=== PATIENT | male | born 1960 | race African-American/Black ===

== ENCOUNTER 2020-02-13 10:55 | Inpatient (IN) | payer MEDICARE, MEDICAID ==
[~2020-02-13] VITALS: Ht 177.8 cm; Wt 103.2 kg
[~2020-02-13 10:55] MED LIST: HYDR-2890 PO
[2020-02-13] MEDS ORDERED: DOCUSATE SODIUM 100 MG (COLACE) CAP PO PRN (12:00)
[2020-02-13] MEDS ORDERED: MELATONIN 3 MG TABLET PO PRN (12:00)
[2020-02-13] MEDS ORDERED: BISACODYL 10 MG SUPP (DULCOLAX) PR PRN (12:00)
[2020-02-13] MEDS ORDERED: ONDANSETRON 4 MG (ZOFRAN) ORAL DISSOLVE TAB PO PRN (12:00)
[2020-02-13] MEDS ORDERED: LOPERAMIDE 2 MG (IMODIUM) TABLET PO PRN (12:00)
[2020-02-13] MEDS ORDERED: diphenhydrAMINE 25 MG TAB (BENADRYL) PO PRN (12:00)
[2020-02-13] MEDS ORDERED: LACTULOSE SYRUP 10GM/15ML (ENULOSE) 30ML UDC PO PRN (12:00)
[2020-02-13] MEDS ORDERED: FLEET ENEMA ADULT 1 EA BTL PR PRN (12:00)
[2020-02-13] MEDS ORDERED: guaiFENesin/CODEINE (ROBITUSSIN AC) 10ML UDC PO PRN (12:00)
[2020-02-13] MEDS ORDERED: CALCIUM CARBONATE 500 MG (TUMS) TAB.CHEW PO PRN (12:00)
[2020-02-13] MEDS ORDERED: ALPRAZolam 0.25 MG (XANAX) TAB PO PRN (12:00)
--- NOTE | 2020-02-13 12:00 | NUR ---
Nicho Duncan admitted to room 232-1, with an admitting diagnosis of Total Right Hip Replacement, on 02/13/20 from [facility] via Private Vehicle, accompanied by Family. Staff met family at entrance and accompanied patient to ARU floor. NICHO DUNCAN JR introduced to surroundings, call light, bed controls, phone, TV, temperature control, lights, meal times, smoking policy, visitor policy, side rail policy, bathrooms and showers. Patient Rights given to patient in the handbook.NICHO DUNCAN JR verbalizes understanding that [facility] is not responsible for the loss or damage to any personal effects or valuables that are kept in the patients possession during their hospitalization. The following Patient Care Plans were discussed with the patient: Discharge Planning, Total hip replacement, and Falls. NICHO DUNCAN JR verbalizes understanding of Interdisciplinary Patient Education. Patient and/or family were informed about the Rapid Response Team and its purpose. Patient received Patient Rights Booklet, which includes Privacy Act Statement and Data Collection Information Summary.
--- OUTSIDE RECORDS SUMMARY | 2020-02-13 13:07 | XMS REPORT | Continuity of Care Document ---
Author Organization Unknown Address Unknown Phone Unavailable Allergies Active Description Code Type Severity Reaction Onset Reported/Identified Relationship to Patient Clinical Status Yes No Known Drug Allergies [id number] Drug Allergy Unknown N/A 07/13/2011 Medications There is no data. 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 07/29/2011 401.9 HYPE RTENSION (SYSTEMIC) 07/29/2011 BEATRIS TENA MD 338.2 1 CHR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 07/29/2011 BEATRIS TENA MD 401.9 HYPERTENSION (SYSTEMIC) 07/29/2011 BEATRIS TENA MD 338.2 1 CHR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 07/29/2011 BEATRIS TENA MD 401.9 HYPERTENSION (SYSTEMIC) 07/29/2011 BEATRIS TENA MD 338.2 1 CHR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 07/29/2011 BEATRIS TENA MD 401.9 HYPERTENSION (SYSTEMIC) 07/29/2011 BEATRIS TENA MD 338.2 1 CHR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 07/29/2011 BEATRIS TENA MD 401.9 HYPERTENSION (SYSTEMIC) 07/29/2011 BEATRIS TENA MD 338.2 1 CHR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 07/29/2011 BEATRIS TENA MD 401.9 HYPERTENSION (SYSTEMIC) 07/29/2011 BEATRIS TENA MD 338.2 1 CHR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 07/29/2011 BEATRIS TENA MD 401.9 HYPERTENSION (SYSTEMIC) 07/29/2011 BEATRIS TENA MD 338.2 1 CHR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 07/29/2011 BEATRIS TENA MD 401.9 HYPERTENSION (SYSTEMIC) 07/29/2011 BEATRIS TENA MD 338.2 1 CHR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 07/29/2011 BEATRIS TENA MD 401.9 HYPERTENSION (SYSTEMIC) 07/29/2011 DARINEL LUGO, BEATRIS 338.2 1 CHR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 07/29/2011 BEATRIS TENA MD 401.9 HYPERTENSION (SYSTEMIC) 07/29/2011 BEATRIS TENA MD 338.2 1 CHR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 07/29/2011 BEATRIS TENA MD 401.9 HYPERTENSION (SYSTEMIC) 07/29/2011 338.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 07/29/2011 401.9 HYPE RTENSION (SYSTEMIC) 07/28/2012 790.6 Live r Function Test, Abnormal 07/28/2012 BEATRIS TENA MD 790.6 Liver Function Test, Abnormal 07/28/2012 BEATRIS TENA MD 790.6 Liver Function Test, Abnormal 07/28/2012 790.6 Live r Function Test, Abnormal 07/28/2012 BEATRIS TENA MD 790.6 Liver Function Test, Abnormal 07/28/2012 BEATRIS TENA MD 790.6 Liver Function Test, Abnormal 07/28/2012 BEATRIS TENA MD 790.6 Liver Function Test, Abnormal 07/28/2012 BEATRIS TENA MD 790.6 Liver Function Test, Abnormal 07/28/2012 BEATRIS TENA MD 790.6 Liver Function Test, Abnormal 07/28/2012 BEATRIS TENA MD 790.6 Liver Function Test, Abnormal 07/28/2012 BEATRIS TENA MD 790.6 Liver Function Test, Abnormal 07/28/2012 BEATRIS TENA MD 790.6 Liver Function Test, Abnormal 07/28/2012 BEATRIS TENA MD 790.6 Liver Function Test, Abnormal 07/28/2012 BEATRIS TENA MD 790.6 Liver Function Test, Abnormal 07/28/2012 790.6 Live r Function Test, Abnormal 02/20/2013 272.4 OTHE R AND UNSPECIFIED HYPERLIPIDEMIA 02/20/2013 BEATRIS TENA MD 272.4 OTHER AND UNSPECIFIED HYPERLIPIDEMIA 02/20/2013 BEATRIS TENA MD 272.4 OTHER AND UNSPECIFIED HYPERLIPIDEMIA 02/20/2013 BEATRIS TENA MD 272.4 OTHER AND UNSPECIFIED HYPERLIPIDEMIA 02/20/2013 BEATRIS TENA MD 272.4 OTHER AND UNSPECIFIED HYPERLIPIDEMIA 02/20/2013 BEATRIS TENA MD 272.4 OTHER AND UNSPECIFIED HYPERLIPIDEMIA 02/20/2013 BEATRIS TENA MD 272.4 OTHER AND UNSPECIFIED HYPERLIPIDEMIA 02/20/2013 BEATRIS TENA MD 272.4 OTHER AND UNSPECIFIED HYPERLIPIDEMIA 02/20/2013 BEATRIS TENA MD 272.4 OTHER AND UNSPECIFIED HYPERLIPIDEMIA 02/20/2013 BEATRIS TENA MD 272.4 OTHER AND UNSPECIFIED HYPERLIPIDEMIA 02/20/2013 BEATRIS TENA MD 272.4 OTHER AND UNSPECIFIED HYPERLIPIDEMIA 05/15/2013 BEATRIS TENA MD 454.1 VARICOSE VEINS OF LOWER EXTREMITIES WITH INFLAMMATION 05/15/2013 BEATRIS TENA MD 454.1 VARICOSE VEINS OF LOWER EXTREMITIES WITH INFLAMMATION 05/15/2013 BEATRIS TENA MD 454.1 VARICOSE VEINS OF LOWER EXTREMITIES WITH INFLAMMATION 05/15/2013 BEATRIS TENA MD 454.1 VARICOSE VEINS OF LOWER EXTREMITIES WITH INFLAMMATION 05/15/2013 BEATRIS TENA MD 454.1 VARICOSE VEINS OF LOWER EXTREMITIES WITH INFLAMMATION 05/15/2013 BEATRIS TENA MD 454.1 VARICOSE VEINS OF LOWER EXTREMITIES WITH INFLAMMATION 05/15/2013 BEATRIS TENA MD 454.1 VARICOSE VEINS OF LOWER EXTREMITIES WITH INFLAMMATION 05/15/2013 BEATRIS TENA MD 454.1 VARICOSE VEINS OF LOWER EXTREMITIES WITH INFLAMMATION 05/15/2013 BEATRIS TENA MD 454.1 VARICOSE VEINS OF LOWER EXTREMITIES WITH INFLAMMATION 05/15/2013 BEATRIS TENA MD 454.1 VARICOSE VEINS OF LOWER EXTREMITIES WITH INFLAMMATION 01/29/2014 BEATRIS TENA MD 608.8 2 HEMATOSPERMIA 01/29/2014 BEATRIS TENA MD 608.8 2 HEMATOSPERMIA 01/29/2014 BEATRIS TENA MD 608.8 2 HEMATOSPERMIA 01/29/2014 BEATRIS TENA MD 608.8 2 HEMATOSPERMIA 01/29/2014 BEATRIS TENA MD 608.8 2 HEMATOSPERMIA 01/29/2014 BEATRIS TENA MD8.8 2 HEMATOSPERMIA 01/29/2014 BEATRIS TENA MD 608.8 2 HEMATOSPERMIA 11/15/2014 BEATRIS TENA MD 790.4 NONSPECIFIC ELEVATION OF LEVELS OF TRANSAMINASE OR LACTIC ACID DEHYDROGENASE (LDH) 11/15/2014 BEATRIS TENA MD 790.4 NONSPECIFIC ELEVATION OF LEVELS OF TRANSAMINASE OR LACTIC ACID DEHYDROGENASE (LDH) Procedures Code Description [place] [address] CMP 01/31/2013 09926 LIPI D PANEL 01/31/20132176390 GF R CALC (RESULT ONLY) 01/31/2013 98239 ROUT INE VENIPUNCTURE 08/13/2013 46503 CMP 08/13/20135439966 GF R CALC (RESULT ONLY) 08/13/2013 72803 XRAY SINUSES ORTIZ VIEW 08/30/2014 55274 MRI SPINE (LUMBAR) W/O CONTRAST 08/30/2014 76194 ROUT INE VENIPUNCTURE 11/14/2014 87203 CMP 11/14/2014 85734 LIPI D PANEL 11/14/20147341875 GF R CALC (RESULT ONLY) 11/14/2014 89482 AMERITOX 01/16/2015 Results There is no data. Encounters ACCT No. Visit Date/Time Discharge Status Pt. Type Provider Facility Loc./Unit Complaint [id number] 01/16/2015 12:52:00 01/16/2015 23:59: 59 EDMUND Outpatient BEATRIS TENA MD [id number] 11/14/2014 10:32:00 11/14/2014 23:59: 59 EDMUND Outpatient BEATRIS TENA MD [id number] 08/30/2014 10:02:00 08/30/2014 23:59: 59 EDMUND Outpatient BEATRIS TENA MD [id number] 08/30/2014 10:02:00 08/30/2014 23:59: 59 EDMUND Outpatient BEATRIS TENA MD [id number] 06/10/2014 16:31:00 06/10/2014 23:59: 59 EDMUND Outpatient BEATRIS TENA MD [id number] 03/22/2014 15:40:00 03/22/2014 23:59: 59 BEATRIS Victor MD [id number] 01/29/2014 16:01:00 01/29/2014 23:59: 59 EDMUND Outpatient BEATRIS TENA MD [id number] 10/30/2013 10:16:00 10/30/2013 23:59: 59 CLS Outpatient BEATRIS TENA MD [id number] 08/13/2013 14:53:00 08/13/2013 23:59: 59 CLS Outpatient BEATRIS TENA MD [id number] 05/15/2013 10:02:00 05/15/2013 23:59: 59 CLS Outpatient BEATRIS TENA MD [id number] 01/30/2013 16:13:00 01/30/2013 23:59: 59 CLS Outpatient BEATRIS TENA MD [id number] 10/23/2012 15:35:00 10/23/2012 23:59: 59 CLS Outpatient BEATRIS TENA MD [id number] 07/25/2012 13:18:00 07/25/2012 23:59: 59 CLS Outpatient [id number] 07/25/2012 13:18:00 07/25/2012 23:59:5 9 CLS Outpatient [id number] 02/20/2013 10:00:00 Document Registration [id number] 09/30/2014 09:00:00 014 23:59:59 CLS Outpatient BEATRIS TENA MD [facility]
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
[2020-02-13] MEDS ORDERED: ASPI-983 PO (14:12)
[2020-02-13] MEDS ORDERED: CARV12.53 PO (14:12)
[2020-02-13] MEDS ORDERED: MELO7.5T46 PO (14:12)
[2020-02-13] MEDS ORDERED: TRAM50TA3 PO (14:12)
[2020-02-13] MEDS ORDERED: GBPN600T PO (14:12)
[2020-02-13] MEDS ORDERED: ATOR40TA70 PO (14:12)
[2020-02-13] MEDS ORDERED: DIAZ10TA3 PO (14:12)
[2020-02-13] MEDS ORDERED: OXYC-471 PO (14:12)
[2020-02-13] MEDS ORDERED: PANT40TA2 PO (14:12)
[2020-02-13] MEDS ORDERED: HYDR12.56 PO (14:12)
[2020-02-13] MEDS ORDERED: DULO30CA49 PO (14:12)
[2020-02-13] MEDS ORDERED: FENO145T26 PO (14:12)
[2020-02-13 14:13] VITALS: BP 92/60
--- NOTE | 2020-02-13 14:13 | Occupational Ther Daily Note ---
OT Current Status-Daily Note Subjective Pt seated in recliner, chair alarm on at start of session, agreeable to OT tx. ADL-Treatment Therapy Code Descriptions/Definitions Functional [place] Measure: 0=Not Assessed/NA 4=Minimal Assistance 1=Total Assistance 5=Supervision or Setup 2=Maximal Assistance 6=Modified [place] 3=Moderate Assistance 7=Complete IndependenceSCALE: Activities may be completed with or without assistive devices. 9-Xwbkvqwkln-uxqrjaj completes the activity by him/herself with no assistance from a helper. 5-Set-up or Clean-up Assistance-helper sets up or cleans up; patient completes activity. [place] assists only prior to or following the activity. 4-Supervision or Touching Assistance-helper provides verbal cues and/or touching/steadying and/or contact guard assistance as patient completes activity. Assistance may be provided throughout the activity or intermittently. 3-Partial/Moderate Assistance-helper does LESS THAN HALF the effort. [place] lifts, holds or supports trunk or limbs, but provides less than half the effort. 2-Substantial/Maximal Assistance-helper does MORE THAN HALF the effort. [place] lifts or holds trunk or limbs and provides more than half the effort. 4-Ypdrzqgqv-izxtbx does ALL the effort. Patient does none of the effort to complete the activity. Or, the assistance of 2 or more helpers is required for the patient to complete the activity. If activity was not attempted, code reason: 7-Patient Refused. 9-Not Applicable-not attempted and the patient did not perform the activity before the current illness, exacerbation or injury. 10-Not Attempted due to Environmental Limitations-(lack of equipment, weather restraints, etc.). 88-Not Attempted due to Medical Conditions or Safety Concerns. Shower/Bathe Self (QC): 3 (Assist BLEs lower legs and feet. Pt able to wash all other areas, CGA during stand at [facility].) Upper Body Dressing (QC): 5 (set up) Lower Body Dressing (QC): 2 (Assist threading BLEs into pants/underwear. Pt able to manage up with CGA in stand at FWW) On/Off Footwear: 2 (Pt able to get shoes off, required assist doffing socks and TedHose. Pt dependent with donning TedHose and socks.) Toileting Hygiene (QC): 3 (Min A standing balance at FWW. Pt able to manage clothing down/up and stand to urinate at toilet.) Other Treatment Pt seated in recliner, transferred to restroom where he completed toileting, shower, and dressing. Pt returned to the recliner, chair alarm on, call light in reach and all needs met. Pt impulsive throughout session, standing without warning, he was educated to not stand without staff present but had poor carryover during tx. Education OT Patient Education: Correct positioning, Energy conservation, Modified ADL techniques, Progress toward Goal/Update tx plan, Purpose of tx/functional activities, Safety issues, Transfer techniques Teaching Recipient: Patient Teaching Methods: Discussion Response to Teaching: Reinforcement Needed OT Senior Living Goals Batch Mixer Goals Time Frame: Mar 05, 2020 Eating (QC): 6 Oral Hygiene (QC): 6 Toileting Hygiene (QC): 6 Shower/Bathe Self (QC): 6 Upper Body Dressing (QC): 6 Lower Body Dressing (QC): 6 On/Off Footwear (QC): 6 Additional Goals: 1-Demonstrate ADL Tasks, 2-Verbalize Understanding, 3- ImproveStrength/Gareth 1=Demonstrate adherence to instructed precautions during ADL tasks. 2=Patient will verbalize/demonstrate understanding of assistive devices/modifications for ADL. 3=Patient will improve strength/tolerance for activity to enable patient to perform ADL's. OT Education/Plan Problem List/Assessment Assessment: Decreased Activ Tolerance, Decreased UE Strength, Impaired Funct Balance, Impaired I ADL's, Impaired Self-Care Skills Discharge Recommendations Plan/Recommendations: Continue POC Treatment Plan/Plan of Care Treatment,Training & Education: Yes Patient would benefit from OT for education, treatment and training to promote independence in ADL's, mobility, safety and/or upper extremity function for ADL's. Plan of Care: ADL Retraining, Functional Mobility, Group Exercise/Act as Ind, UE Funct Exercise/Act Treatment Duration: Mar 05, 2020 Frequency: At least 5 of 7 days/Wk (IRF) Estimated Hrs Per Day: 1.5 hours per day Agreement: Yes Rehab Potential: Good Time/GCodes Start Time: 13:10 Stop Time: 14:00 Total Time Billed (hr/min): 50 Billed Treatment Time 1, ADL 3 DEREJE GODFREY OT Feb 13, 2020 14:13
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
--- NOTE | 2020-02-13 14:29 | NUR ---
ENTERED THE MED REC USING THE DISCHARGE MEDICATION LIST FROM [facility] Addendum: 02/14/20 at 1641 by KIMBERLEY NUNEZ CPhT I SPOKE WITH THE PT AND WENT THRU THE EXT MED HISTORY TO COMPLETE THE MED REC THE FOLLOWING MEDICATIONS HAVE BEEN REMOVED FROM THE MED REC DUE TO THE PT NOT TAKING THEM BEFORE HIS SURGERY: OXYCODONE/APAP 5-325MG MELOXICAM 7.5MG PROTONIX 40MG TRAMADOL 50MG THE FOLLOWING MEDICATIONS WERE ADDED TO THE MED REC SINCE HE WAS TAKING THEM BEFORE HIS SURGERY: OXYCODONE 10MG LISINOPRIL 20MG OTC MEDS: ASPIRIN
[2020-02-13] MEDS ORDERED: DIAZEPAM 5 MG (VALIUM) TABLET PO PRN (14:45)
--- NOTE | 2020-02-13 14:59 | Physical Therapy Evaluation ---
PT Evaluation-General Medical Diagnosis Admission Date Feb 13, 2020 at 12:00 Medical Diagnosis: Right NITA Onset Date: Feb 12, 2020 Therapy Diagnosis Therapy Diagnosis: impaired mobility, strength, endurance, ROM Precautions Precautions/Isolations: Standard Precautions Referral Physician: Yareli Reason for Referral: Evaluation/Treatment Medical History Pertinent Medical History: CVA, HTN, OA Reviewed History: Yes Social History Home: Apartment Current Living Status: Alone Entry Into Home: Level Entry Prior Prior Level of Function SCALE: Activities may be completed with or without assistive devices. 8-Nglfgbdmrb-cnqmvfu completes the activity by him/herself with no assistance from a helper. 5-Set-up or Clean-up Assistance-helper sets up or cleans up; patient completes activity. [place] assists only prior to or following the activity. 4-Supervision or Touching Assistance-helper provides verbal cues and/or touching/steadying and/or contact guard assistance as patient completes activity. Assistance may be provided throughout the activity or intermittently. 3-Partial/Moderate Assistance-helper does LESS THAN HALF the effort. [place] lifts, holds or supports trunk or limbs, but provides less than half the effort. 2-Substantial/Maximal Assistance-helper does MORE THAN HALF the effort. [place] lifts or holds trunk or limbs and provides more than half the effort. 5-Vbbzanbor-sedpmb does ALL the effort. Patient does none of the effort to complete the activity. Or, the assistance of 2 or more helpers is required for the patient to complete the activity. If activity was not attempted, code reason: 7-Patient Refused. 9-Not Applicable-not attempted and the patient did not perform the activity before the current illness, exacerbation or injury. 10-Not Attempted due to Environmental Limitations-(lack of equipment, weather restraints, etc.). 88-Not Attempted due to Medical Conditions or Safety Concerns. Bed Mobility: 6 Transfers (B,C,W/C): 6 Gait: 6 Indoor Mobility (Ambulation): Independent Patient states he was using both a walker and cane PT Evaluation-Current Subjective Patient in recliner pre tx, agrees to PT, has 8/10 pain in right hip. Pt/Family Goals to be independent at home Objective Patient Orientation: Person, Place, Situation ROM/Strength ROM Lower Extremities NT Strength Lower Extremities NT Sensory Vision: Functional Hearing: Functional Hand Dominance: Right Sensation Right Lower Extremit: Impaired Sensation Left Lower Extremity: Intact Sensation Lower Extremities Patient has decreased sensation in the right leg. Transfers Roll Left to Right (QC): 4 Sit to Lying (QC): 3 Lying to Sitting/Side of Bed(Q: 3 Sit to Stand (QC): 4 Chair/Qne-yh-Dlult Xfer(QC): 4 Toilet Transfer (QC): 4 Car Transfer (QC): 3 Patient performs bed mobility with SBA, supine <-> sit with min assist, sit <-> stand CGA, transfers CGA, car transfer min assist. Patient needs cues for hand placement and safety, will often sit without reaching back for armrests. Gait Does the Patient Walk?: Yes Mode of Locomotion: Walk Anticipated Mode of Locomotion: Walk Walk 10 feet (QC): 4 Walk 50 ft with 2 Turns(QC): 4 Walk 150 ft (QC): 4 Walking 10ft/uneven surface-QC: 4 Distance: 200', 150' Gait Assistive Device: FWW Comments/Gait Description Patient can ambulate 200' with a rolling walker with CGA (including 50' with at least 2 turns of 90 degrees and 10' over an uneven surface). Patient ambulates slowly but steady, good step through and heel strike. Wheelchair Training Does the Pt Use a Wheelchair?: No Wheel 50 ft with 2 turns (QC): 9 Wheel 150 ft (QC): 9 Stairs #of Steps: 4 1 Step (curb) (QC): 4 4 Steps (QC): 4 12 Steps (QC): 88 Patient can go up and down 4 steps using 2 handrails with CGA, cues for foot placement. Patient has a difficult time getting getting right leg off the step when descending. Balance Sitting Static: Normal Sitting Dynamic: Normal Standing Static: Good Standing Dynamic: Good Picking up an Object (QC): 88 Treatment NuStep level 3 for 15 min Assessment/Needs Patient has impaired mobility, strength, endurance, ROM. Patient in recliner post tx with nurse call, phone, tray, chair alarm on. Patient has impaired safety awareness and needs cues for hand placement when sitting and standing. Rehab Potential: Fair PT Short Term Goals Short Term Goals Time Frame: Feb 20, 2020 Roll Left & Right: 6 Sit to lyin Lying to sitting on side of be: 4 Sit to stand: 4 Chair/tdr-sz-jhtmp transfer: 4 Walk 10 feet: 4 Walk 50 feet with two turns: 4 Walk 150 feet: 4 PT Jacquard Lace Weaver Goals Senior Care Goals PT Senior Care Goals Time Frame: Mar 05, 2020 Roll Left & Right (QC): 6 Sit to Lying (QC): 6 Lying-Sitting on Side/Bed(QC): 6 Sit to Stand (QC): 6 Chair/Ixx-aj-Vlzpa Xfer(QC): 6 Toilet Transfer (QC): 6 Car Transfer (QC): 6 Does the Patient Walk: Yes Walk 10 feet (QC): 6 Walk 50ft with 2 Turns (QC): 6 Walk 150 ft (QC): 6 Walking 10ft on Uneven Surface: 6 1 Step (curb) (QC): 4 4 Steps (QC): 4 12 Steps (QC): 4 Picking up an Object (QC): 88 Does the Pt use WC or Scooter?: No Wheel 50 feet with 2 turns (QC: 9 Type: N/A Wheel 150 feet: 9 Type: N/A PT Plan Problem List Problem List: Activity Tolerance, Functional Strength, Safety, Balance, Gait, Transfer, Bed Mobility, ROM Treatment/Plan Treatment Plan: Continue Plan of Care Treatment Plan: Bed Mobility, Education, Functional Activity Gareth, Functional Strength, Group Therapy, Gait, Safety, Therapeutic Exercise, Transfers Treatment Duration: Mar 05, 2020 Frequency: At least 5 of 7 days/Wk (IRF) Estimated Hrs Per Day: 1.5 hours per day Patient and/or Family Agrees t: Yes Safety Risks/Education Patient Education: Gait Training, Transfer Techniques, Steps, Correct Positioning, Safety Issues Teaching Recipient: Patient Teaching Methods: Demonstration, Discussion Response to Teaching: Reinforcement Needed Discharge Recommendations Plan Patient will perform bed mobility and transfer training, balance and endurance training, functional strengthening, stair training, gait training, and education, to improve functional mobility and independence at home. Therapy Discharge Recommendati: Home & Family Time/GCodes Time In: 1400 Time Out: 1515 Total Billed Treatment Time: 75 Total Billed Treatment 1 visit EVM 30' EX 15' GT 15' FA 15' RHONDA DING PT Feb 13, 2020 14:59
[2020-02-13 15:15] VITALS: BP 92/60
[2020-02-13 15:17] VITALS: BP 92/60
--- NOTE | 2020-02-13 16:07 | ST Cognitive Linguistic Eval ---
Speech Evaluation-General Medical Diagnosis Right NITA Onset Date: Feb 12, 2020 Therapy Diagnosis Therapy Diagnosis: Cognitive-communication Referral Referring Physician: Dr. Downs Medical History Pertinent Medical History: CVA, HTN, OA Reviewed History: Yes Social History Current Living Status: Alone Speech PLF-Current Status Prior Level of Function Patient lived alone with family support where he was independent for much of his daily needs. Subjective Patient was pleasant and cooperative with the cognitive assessment. Language Eval: Auditory Comprehends Simple Yes/No Ques: Functional Indent/Objects Multiple Hill: Functional Ident/Pics in Multiple Hill: Functional Follows 1-Step Commands: Functional Follows Complex Directions: Mild Follows General Conversations: Moderate Language Eval: Verbal Language Completes Spontaneous Greeting: Functional Produces Auto, Serial Info: Functional Imitates Simple Words/Phrases: Functional Word Finding: Severe Requests Basic Needs: Functional States Basic Personal Info: Mild Expresses Complex Ideas: Moderate Objective Cognitive Domain Attention: Moderate Memory: Mild Problem Solving: Mild Executive Functions: Mild Visuospatial Skills: Mild Composite Severity Rating: Moderate Clock Drawing Severity Rating: Mild Objective Formal/Standardized Tests [facility] Status ([facility]) Results 24/30, Mild Neurocognitive Disorder range of function. Oral Motor/Speech Production Patient is intelligible, however he has a moderate dysfluent pattern of speech Impression Patient is a pleasant 59 year old male who has a complex history. He was admitted to the ARU s/p right hip replacement. Patient was given the SLUMS with a score of 24/30 obtained. this score falls in the MNCD range of function. Patient qualifies for skilled services for cognitive therapy. Speech Patient Assess Expression of Ideas/Wants: Exhibits (3) Understanding Verbal Content: Usually Understands (3) Brief Interview-Mental Status: Yes Repetition of Three Words: Three (3) Temporal Orientation: Year: Correct (3) Temporal Orientation: Month: Accurate within 5 days(2) Temporal Orientation: Day: Correct (1) Recall : Wear to say "Sock": Yes,after cueing (1) Recall : Color: No, could not recall (0) Recall : Bed: Yes,after cueing (1) Memory/Recall Ability: Current season, That he or she is in a hsp/hsp unit Speech Short Term Goals Short Term Goals Short Term Goals 1) Patient will complete memory tasks related to his daily needs with 90% or greater given minimal cuing. 2) Patient will complete safety awareness tasks related to his daily needs with 90% or greater given minimal cuing. 3) Patient will complete problem solving tasks related to his daily needs with 90% or greater given minimal cuing. Speech Care Home Goals Care Home Goals Patient will improve cognitive-communication necessary for safety and daily living tasks with minimal assist. Speech-Plan Patient/Family Goals Patient/Family Goals: Patient plans on returning home with family support upon rehab discharge. Treatment Plan Speech Therapy Treatment Plan: Continue Plan of Care Treatment Duration: Feb 29, 2020 Frequency: 5 times per week Estimated Hrs Per Day: .5 hour per day Rehab Potential: Fair Barriers to Learning: Patient's medical history and SLUMS score Pt/Family Agrees to Plan: Yes Safety Risks/Education Teaching Recipient: Patient Teaching Methods: Discussion Response to Teaching: Verbalize Understanding Education Topics Provided: Safety within his room and communication of wants/needs Time Speech Therapy Time In: 15:30 Speech Therapy Time Out: 16:00 Total Billed Time: 30 Billed Treatment Time 1, YANETNDMARGARET Peters Feb 13, 2020 16:07
[2020-02-13 18:00] VITALS: BP 119/74
[2020-02-13] MEDS: GABAPENTIN 600 MG (NEURONTIN) TAB PO SCH (20:49)
[2020-02-13] MEDS: CARVEDILOL 12.5 MG (COREG) TABLET PO SCH (20:50)
[2020-02-13] MEDS: FENOFIBRATE 134 MG (LOFIBRA) CAPSULE PO SCH (20:50)
[2020-02-13] MEDS: MELOXICAM 7.5 MG (MOBIC) TABLET PO SCH (20:50)
[2020-02-13] MEDS: oxyCODONE/APAP 5/325MG (PERCOCET 5) TABLET PO PRN (20:54)
[2020-02-13] MEDS: DOCUSATE SODIUM 100 MG (COLACE) CAP PO SCH (22:12)
[2020-02-13] MEDS: polyethylene glycoL POWDER 17 GM (MIRALAX) PACK PO SCH (22:12)
[2020-02-13] MEDS: SENNA W/DOCUSATE (SENOKOT S) TABLET PO SCH (22:13)
--- NOTE | 2020-02-14 02:13 | NUR ---
RN checked on patient and found patient in bed with all bedding on the floor. Patient stated he was okay but RN explained that we needed to get new bedding on his bed. Bedding replaced and gown placed on patient. RN found a pill bottle sitting on the computer next to patient's bed. RN grabbed the bottle to look at it and patient stated he needed it back. Bottle contained oxycodone/apap 5-325 mg. Pills were prescribed by Dr. Jon and filled by [facility] on 02/13/20. Bottle label states 56 pills. RN will count with other RN, fill out a count sheet. and lock in the med insulation cupola operator patient's room. Addendum: 02/14/20 at 0313 by HAYDEE THOMAS RN Bottle said there should be 56 pills but count only found 45. Count sheet filled out and signed and medication locked in med insulation cupola operator room. Vitals stable- 150/99, pulse 68, respirations 21, and O2 100%. Dr. Downs notified and no new orders received.
[2020-02-14 05:42] LABS: BASOPHILS % (AUTO) 0 % (0-10); EOSINOPHILS % (AUTO) 0 % (0-10); HEMATOCRIT 31 % (40-54); HEMOGLOBIN 10.6 G/DL (13.3-17.7); LYMPHOCYTES # (AUTO) 1.4 X 10^3 (1.0-4.0); LYMPHOCYTES % (AUTO) 12 % (12-44); MEAN CORPUSCULAR HEMOGLOBIN 31 PG (25-34); MEAN CORPUSCULAR HGB CONC 34 G/DL (32-36); MEAN CORPUSCULAR VOLUME 89 FL (80-99); MEAN PLATELET VOLUME 9.6 FL (7.4-10.4); MONOCYTES # (AUTO) 1.3 X 10^3 (0.0-1.0); MONOCYTES % (AUTO) 11 % (0-12); NEUTROPHILS # (AUTO) 9.3 X 10^3 (1.8-7.8); NEUTROPHILS % (AUTO) 77 % (42-75); PLATELET COUNT 200 10^3/uL (130-400); RED CELL DISTRIBUTION WIDTH 14.2 % (10.0-14.5)
[2020-02-14 05:53] LABS: ALBUMIN 3.7 GM/DL (3.2-4.5); CHLORIDE 101 MMOL/L (98-107); POTASSIUM 4.4 MMOL/L (3.6-5.0); SODIUM 136 MMOL/L (135-145)
[2020-02-14 05:55] VITALS: BP 150/99
[2020-02-14 05:55] LABS: GLUCOSE 117 MG/DL (70-105)
[2020-02-14 05:56] LABS: TOTAL PROTEIN 6.6 GM/DL (6.4-8.2)
[2020-02-14 05:57] LABS: BILIRUBIN,TOTAL 0.5 MG/DL (0.1-1.0); CARBON DIOXIDE 26 MMOL/L (21-32)
[2020-02-14 05:59] LABS: ALKALINE PHOSPHATASE 138 U/L (40-136); CREATININE SERUM 1.07 MG/DL (0.60-1.30); GFR ESTIMATED > 60
[2020-02-14 06:00] LABS: BUN/CREATININE RATIO 25
[2020-02-14 06:02] LABS: ALANINE AMINOTRANSFERASE 243 U/L (0-55)
[2020-02-14] MEDS: PANTOPRAZOLE 40 MG (PROTONIX) TAB PO SCH (08:10)
[2020-02-14] MEDS: ASPIRIN E.C. 81 MG (ECOTRIN) TAB PO SCH (08:10)
[2020-02-14] MEDS: CARVEDILOL 12.5 MG (COREG) TABLET PO SCH ×2 (08:10→22:24)
[2020-02-14] MEDS: MELOXICAM 7.5 MG (MOBIC) TABLET PO SCH ×2 (08:10→22:16)
[2020-02-14] MEDS: GABAPENTIN 600 MG (NEURONTIN) TAB PO SCH ×3 (08:10→22:16)
[2020-02-14] MEDS: polyethylene glycoL POWDER 17 GM (MIRALAX) PACK PO SCH ×2 (08:11→22:18)
[2020-02-14] MEDS: SENNA W/DOCUSATE (SENOKOT S) TABLET PO SCH ×2 (08:11→22:18)
[2020-02-14] MEDS: DOCUSATE SODIUM 100 MG (COLACE) CAP PO SCH ×2 (08:12→22:18)
[2020-02-14] MEDS: DULoxetine 30 MG (CYMBALTA) CAP PO SCH (08:13)
--- NOTE | 2020-02-14 09:40 | Speech Therapy Daily Note ---
Speech Daily Progress Note Subjective Date Seen by Provider: Feb 14, 2020 Time Seen by Provider: 00:30 Patient was sleeping in his bed when I entered his room, he did awaken easily and participated with therapy. Objective Patient completed a series of problem solving tasks via q/a with 70% accuracy given mod to max redirections. Assessment Assessment Current Status: Fair Progress Treatment Plan Continue Plan of Care Speech Short Term Goals Short Term Goals Short Term Goals 1) Patient will complete memory tasks related to his daily needs with 90% or greater given minimal cuing. 2) Patient will complete safety awareness tasks related to his daily needs with 90% or greater given minimal cuing. 3) Patient will complete problem solving tasks related to his daily needs with 90% or greater given minimal cuing. Speech Power Plant Operations Manager Goals Power Plant Operations Manager Goals Patient will improve cognitive-communication necessary for safety and daily living tasks with minimal assist. Speech-Plan Patient/Family Goals Patient/Family Goals: Patient plans on returning home with family support upon hospital discharge. Treatment Plan Speech Therapy Treatment Plan: Continue Plan of Care Treatment Duration: Feb 29, 2020 Frequency: 5 times per week Estimated Hrs Per Day: .5 hour per day Rehab Potential: Fair Barriers to Learning: Patient's medical history, cognitive deficits, impulsive behaviors Pt/Family Agrees to Plan: Yes Safety Risks/Education Teaching Recipient: Patient Teaching Methods: Demonstration, Discussion Response to Teaching: Verbalize Understanding, Return Demonstration Education Topics Provided: Continued safety and communication of wants/needs, using the call light as needed Time Speech Therapy Time In: 09:00 Speech Therapy Time Out: 09:30 Total Billed Time: 30 Billed Treatment Time 1, MARGARET Hinds Feb 14, 2020 09:40
--- NOTE | 2020-02-14 10:37 | Physical Therapy Daily Note ---
PT Daily Note-Current Subjective Pt in bed upon arrival. Pt agrees to therapy tx; request urinal use and to get dressed. Pain Numeric Pain Scale: 3 Location: Right Location Body Site: Hip Pain Description: Ache Comment: Spoke w/ RN regarding pain; pt was given pain medication earlier in shift. Mental Status Patient Orientation: Person, Place, Time, Situation, Mumbles (At times ) Attachments: Other-See Comments (ANNMARIE Hicks) Transfers SCALE: Activities may be completed with or without assistive devices. 2-Zilyxslozu-kqfbezw completes the activity by him/herself with no assistance from a helper. 5-Set-up or Clean-up Assistance-helper sets up or cleans up; patient completes activity. [place] assists only prior to or following the activity. 4-Supervision or Touching Assistance-helper provides verbal cues and/or touching/steadying and/or contact guard assistance as patient completes activity. Assistance may be provided throughout the activity or intermittently. 3-Partial/Moderate Assistance-helper does LESS THAN HALF the effort. [place] lifts, holds or supports trunk or limbs, but provides less than half the effort. 2-Substantial/Maximal Assistance-helper does MORE THAN HALF the effort. [place] lifts or holds trunk or limbs and provides more than half the effort. 4-Ghoyuxydd-tvsrud does ALL the effort. Patient does none of the effort to complete the activity. Or, the assistance of 2 or more helpers is required for the patient to complete the activity. If activity was not attempted, code reason: 7-Patient Refused. 9-Not Applicable-not attempted and the patient did not perform the activity before the current illness, exacerbation or injury. 10-Not Attempted due to Environmental Limitations-(lack of equipment, weather restraints, etc.). 88-Not Attempted due to Medical Conditions or Safety Concerns. Sit to Lying (QC): 3 Lying to Sitting/Side of Bed(Q: 3 Sit to Stand (QC): 4 Chair/Oas-ej-Hywix Xfer(QC): 4 Gait Training Does the Patient Walk?: Yes Distance: 150' Gait Persons Needed: 1 Gait Assistive Device: FWW Pt ambulates w/ CGA Exercises Standing: Weight shifts NuStep Minutes: 15 NuStep Workload: 3 Treatments Pt requires assistance w/ LE dressing. Pt wt shifts while using urinal at start of tx and while washing hands; wt shifts towards end of tx using toilet in bathroom and while washing hands. No LOB at any time. Pt in bed w/ bed alarm on, call light and bedside table w/ in reach and all needs met at end of tx. Assessment Current Status: Good Progress Pt actively participates in therapy tx. Pt requires skilled VC's for hand placement during transfers. PT Short Term Goals Short Term Goals Time Frame: Feb 20, 2020 Roll Left & Right: 6 Sit to lyin Lying to sitting on side of be: 4 Sit to stand: 4 Chair/cfc-sx-bsxne transfer: 4 Walk 10 feet: 4 Walk 50 feet with two turns: 4 Walk 150 feet: 4 PT Detention Goals Search Engine Optimization Analyst Goals PT Detention Goals Time Frame: Mar 05, 2020 Roll Left & Right (QC): 6 Sit to Lying (QC): 6 Lying-Sitting on Side/Bed(QC): 6 Sit to Stand (QC): 6 Chair/Xyo-gn-Laygm Xfer(QC): 6 Toilet Transfer (QC): 6 Car Transfer (QC): 6 Does the Patient Walk: Yes Walk 10 feet (QC): 6 Walk 50ft with 2 Turns (QC): 6 Walk 150 ft (QC): 6 Walking 10ft on Uneven Surface: 6 1 Step (curb) (QC): 4 4 Steps (QC): 4 12 Steps (QC): 4 Picking up an Object (QC): 88 Does the Pt use WC or Scooter?: No Wheel 50 feet with 2 turns (QC: 9 Type: N/A Wheel 150 feet: 9 Type: N/A PT Plan Problem List Problem List: Activity Tolerance, Functional Strength, Safety, Balance, Gait, Transfer, Bed Mobility Treatment/Plan Treatment Plan: Continue Plan of Care Treatment Plan: Bed Mobility, Education, Functional Activity Gareth, Functional Strength, Group Therapy, Gait, Safety, Therapeutic Exercise, Transfers Treatment Duration: Mar 05, 2020 Frequency: At least 5 of 7 days/Wk (IRF) Estimated Hrs Per Day: 1.5 hours per day Patient and/or Family Agrees t: Yes Safety Risks/Education Patient Education: Gait Training, Transfer Techniques, Correct Positioning, Safety Issues Teaching Recipient: Patient Teaching Methods: Discussion Response to Teaching: Verbalize Understanding, Reinforcement Needed Time/GCodes Time In: 0930 Time Out: 1030 Total Billed Treatment Time: 60 Total Billed Treatment 1, GT x1 (15m), EX x1 (15m), FA x2 (30m) INDIA LEZAMA MINER PICK Feb 14, 2020 10:37
--- NOTE | 2020-02-14 11:11 | NUR ---
DC FLUID RESTRICTION PER DR. LUJAN.
[2020-02-14] MEDS: oxyCODONE/APAP 5/325MG (PERCOCET 5) TABLET PO PRN ×2 (11:27→22:24)
--- NOTE | 2020-02-14 12:02 | Occupational Ther Daily Note ---
OT Current Status-Daily Note Subjective Pt sleeping in bed, woke to name. Pt stated that he had just laid down from PT. Pt educated on 3 hrs of therapy and the difference between OT/PT. Pt c/o pain, stating that he did have pain pills from PCP every 4 hours and did not want that to change. Nrsg notified and brought pain meds. Mental Status/Objective Patient Orientation: Person, Place, Time, Situation Attachments: IV ADL-Treatment Pt declined shower or changing clothing. Supine <--> EOB min A with R LE. Pt educated on dressing equipment for lower body. Pt demonstrated understanding with dressing stick and sock aide, minimal verbal cues for pt during return demonstration. Therapy Code Descriptions/Definitions Functional [place] Measure: 0=Not Assessed/NA 4=Minimal Assistance 1=Total Assistance 5=Supervision or Setup 2=Maximal Assistance 6=Modified [place] 3=Moderate Assistance 7=Complete IndependenceSCALE: Activities may be completed with or without assistive devices. 6-Uyexasyxos-aqclsfe completes the activity by him/herself with no assistance from a helper. 5-Set-up or Clean-up Assistance-helper sets up or cleans up; patient completes activity. [place] assists only prior to or following the activity. 4-Supervision or Touching Assistance-helper provides verbal cues and/or touching/steadying and/or contact guard assistance as patient completes activity. Assistance may be provided throughout the activity or intermittently. 3-Partial/Moderate Assistance-helper does LESS THAN HALF the effort. [place] lifts, holds or supports trunk or limbs, but provides less than half the effort. 2-Substantial/Maximal Assistance-helper does MORE THAN HALF the effort. [place] lifts or holds trunk or limbs and provides more than half the effort. 6-Keyytizmt-uivsiz does ALL the effort. Patient does none of the effort to complete the activity. Or, the assistance of 2 or more helpers is required for the patient to complete the activity. If activity was not attempted, code reason: 7-Patient Refused. 9-Not Applicable-not attempted and the patient did not perform the activity before the current illness, exacerbation or injury. 10-Not Attempted due to Environmental Limitations-(lack of equipment, weather restraints, etc.). 88-Not Attempted due to Medical Conditions or Safety Concerns. Eating (QC): 6 On/Off Footwear: 5 Other Treatment Pt ambulated to <--> from therapy gym using FWW. Pt completed B UE tasks to increase gross/fine motor strengthening for daily functional tasks. Resistive clothes pegs placed/taken out with each hand. 1# wt attached to wrists to complete ROM arc forward/backward with each arm. B UE dowel tamra 3 exercises with 1# wts on wrists, shldr flexion and seated rows 2 sets 10 reps and bicep curls 2 sets 20 reps. Pt's B UE are weak though are WFL with movement on all planes. Pt received lunch and was able to complete own set up and use regular utensils to eat. After session, pt lying in bed with call light/phone in reach. All needs met in room. OT Psychologist Educational Goals Psychologist Educational Goals Time Frame: Mar 05, 2020 Eating (QC): 6 Oral Hygiene (QC): 6 Toileting Hygiene (QC): 6 Shower/Bathe Self (QC): 6 Upper Body Dressing (QC): 6 Lower Body Dressing (QC): 6 On/Off Footwear (QC): 6 Additional Goals: 1-Demonstrate ADL Tasks, 2-Verbalize Understanding, 3-ImproveStrength/Gareth 1=Demonstrate adherence to instructed precautions during ADL tasks. 2=Patient will verbalize/demonstrate understanding of assistive devices/modifications for ADL. 3=Patient will improve strength/tolerance for activity to enable patient to perform ADL's. OT Education/Plan Problem List/Assessment Assessment: Decreased Activ Tolerance, Decreased Safety Aware, Decreased UE Strength, Impaired Coordination, Impaired Funct Balance, Impaired Self-Care Skills, Restricted Funct UE ROM Pt s/p right NITA with decreased mobility and ADL functioning. Pt to benefit from skilled OT intervention for ADL training, transfers, strengthening, adaptive equipment education, and safety education to increase level of independence and allow safe discharge home. Discharge Recommendations Plan/Recommendations: Continue POC Treatment Plan/Plan of Care Patient would benefit from OT for education, treatment and training to promote independence in ADL's, mobility, safety and/or upper extremity function for ADL's. Plan of Care: ADL Retraining, Functional Mobility, Group Exercise/Act as Ind, UE Funct Exercise/Act Treatment Duration: Mar 05, 2020 Frequency: At least 5 of 7 days/Wk (IRF) Estimated Hrs Per Day: 1.5 hours per day Agreement: Yes Rehab Potential: Fair Time/GCodes Start Time: 10:45 Stop Time: 12:00 Total Time Billed (hr/min): 75 Billed Treatment Time 1 visit-ADL 2 (30 min) NM 3 (45 min) MATILDA SUAZO Feb 14, 2020 12:01
--- NOTE | 2020-02-14 12:10 | Individualized Plan of Care ---
Individualized Plan of Care Rehab Nursing IPOC Order Admission Date Feb 13, 2020 at 12:00 Current Orders Orders General/Regular (02/13/20 Lunch) Admission Order(Inpt,Obs,Sdc) (02/13/20 11:48) Vital Signs: Per Unit Policy ( 08,16,00 (02/13/20 11:48) Benoit Hicks 09,21 (02/13/20 11:48) Sequential Compression Device Q4H (02/13/20 11:48) Station Installer And Repairer-Inpt Rehab Con (02/13/20 11:48) Rehab Nursing Orders-Ipoc (02/13/20 11:48) Physical Therapy Rehab Orders (02/13/20 11:48) Occupational Therapy Rehab Ord (02/13/20 11:48) Speech Therapy Rehab Orders (02/13/20 11:48) Cbc With Automated Diff (02/14/20 06:00) Comprehensive Metabolic Panel (02/14/20 06:00) General/Regular (02/13/20 Dinner) Intake & Output 06,14,22 (02/13/20 11:48) Precautions (Aru) (02/13/20 11:48) Weekly Weight WEEK (02/13/20 11:48) Rehab-Intensity Of Therapy (02/13/20 11:48) Initiate Admission Nursing Pro .admission (02/13/20 11:48) Alprazolam Tablet (Xanax Tablet) (02/13/20 12:00) Calcium Carbonate Chew Tablet (Antacid C (02/13/20 12:00) Diphenhydramine Tablet (Benadryl Tablet) (02/13/20 12:00) Docusate Sodium Capsule (Colace Capsule) (02/13/20 21:00) Docusate Sodium Capsule (Colace Capsule) (02/13/20 12:00) Bisacodyl Suppository (Dulcolax Supposit (02/13/20 12:00) Lactulose Oral Solution (Enulose Oral So (02/13/20 12:00) Na Phos/Na Biphos Enema (Fleet Enema Leroy (02/13/20 12:00) Guaifenesin/Codeine Syrup (Robitussin Ac (02/13/20 12:00) Loperamide Tablet (Imodium Tablet) (02/13/20 12:00) Melatonin Tablet (Melatonin Tablet) (02/13/20 12:00) Polyethylene Glycol Powder Pkt (Miralax (02/13/20 21:00) Ondansetron Oral Dissolve Tab (Zofran (02/13/20 12:00) Senna S Tablet (Senokot S Tablet) (02/13/20 21:00) Code/Resuscitation (02/13/20 11:48) Initiate Admission Nursing Pro .admission (02/13/20 11:48) Ambulate 08,12,20 (02/13/20 12:34) Sequential Compression Device Q4H (02/13/20 12:34) Dvt/Vte Risk - Notifiy Physici Q4H (02/13/20 12:34) Admission Arrival Bed Request (02/13/20 12:00) Aspirin Enteric Coated Tablet (Ecotrin T (02/14/20 09:00) Atorvastatin Tablet (Lipitor) (02/13/20 21:00) Carvedilol Tablet (Coreg Tablet) (02/13/20 21:00) Duloxetine Capsule (Cymbalta Capsule) (02/14/20 09:00) Gabapentin Capsule/Tablet (Neurontin Cap (02/13/20 21:00) Meloxicam Tablet (Mobic Tablet) (02/13/20 21:00) Oxycodone/Apap 5/325mg Tablet (Percocet (02/13/20 14:30) Pantoprazole Tablet (Protonix Tablet) (02/14/20 09:00) Tramadol Tablet (Ultram Tablet) (02/13/20 14:30) Diazepam Tablet (Valium Tablet) (02/13/20 14:45) Fenofibrate,Micronized Capsule (Lofibra (02/13/20 21:00) Patient Visit (02/13/20 ) Speech Sound Lang Comp (02/13/20 ) Patient Visit (02/13/20 ) Pt Eval Moderate Complexity (02/13/20 ) Gait Training, Ea 15 Min (02/13/20 ) Exercise Therap, Ea 15 Min (02/13/20 ) Functional Activities, Ea 15 (02/13/20 ) Ambulate 08,12,20 (02/13/20 18:49) Sequential Compression Device Q4H (02/13/20 18:49) Dvt/Vte Risk - Notifiy Physici Q4H (02/13/20 18:49) Hepatitis C Antibody (02/14/20 10:37) Patient Visit (02/14/20 ) Gait Training, Ea 15 Min (02/14/20 ) Exercise Therap, Ea 15 Min (02/14/20 ) Functional Activities, Ea 15 (02/14/20 ) Patient Visit (02/14/20 ) Treat. Speech/Lang/Voice (02/14/20 ) Patient Visit (02/14/20 ) Exercise Therap, Ea 15 Min (02/14/20 ) Patient Visit (02/15/20 ) Exercise Therap, Ea 15 Min (02/15/20 ) Gait Training, Ea 15 Min (02/15/20 ) Patient Visit (02/15/20 ) Treat. Speech/Lang/Voice (02/15/20 ) Patient Visit (02/15/20 ) Gait Training, Ea 15 Min (02/15/20 ) Exercise Therap, Ea 15 Min (02/15/20 ) Rehab Nursing Orders: Ongoing Assess. of Cognitive Status, Ongoing Assess. of Function Status, Bowel Management, Bowel Training, Disease Management & Educaiton, DVT Prophylaxis, Fall Prevention, Fluid/Electrolyte/Nutrition Mgmt, Infection Prevention, Medication Management & Education, Management of Risks & Complications, Management of Skin Intergrity, Nutrition Management, Pain Manage ment, Patient/Family Support, Safety Management Intensity of Therapy to be met Patient to be seen: Min.3h per day/5 of 7d PT IPOC Problem List: Activity Tolerance, Functional Strength, Safety, Balance, Gait, Transfer, Bed Mobility Treatment Plan: Continue Plan of Care Bed Mobility, Education, Functional Activity Gareth, Functional Strength, Group Therapy, Gait, Safety, Therapeutic Exercise, Transfers Treatment Duration: Mar 05, 2020 Frequency: At least 5 of 7 days/Wk (IRF) Estimated Hrs Per Day: 1.5 hours per day OT IPOC Problems: Decreased Activ Tolerance, Decreased UE Strength, Impaired Funct Balance, Impaired I ADL's, Impaired Self-Care Skills OT Treatment, Training and Edu: Yes OT Problems Pt s/p right NITA with decreased mobility and ADL functioning. Pt to benefit from skilled OT intervention for ADL training, transfers, strengthening, adaptive equipment education, and safety education to increase level of independence and allow safe discharge home. Plan of Care: ADL Retraining, Functional Mobility, Group Exercise/Act as Ind, UE Funct Exercise/Act Treatment Duration: Mar 05, 2020 Frequency: At least 5 of 7 days/Wk (IRF) Estimated Hrs Per Day: 1.[address] IPOC Speech Therapy Treatment Plan: Continue Plan of Care Treatment Duration: Feb 29, 2020 Frequency: 5 times per week Estimated Hrs Per Day: .5 hour per day Station Installer And Repairer/Case Mgmt Station Installer And Repairer/Case Managemen: Discharge Planning Dietitian/Dental Manager Dietitian/Dental Manager to monitor nutritional status and make changes and/or recommendations as needed and work with speech pathology on dietary upgrades as the occur. Physician IPOC Medical Issues being managed closely and that require the 24 hour availability of a physician: Recent surgery in multiple CVA hx patient at [facility] risk for decompensation and labile BP levels Medical Issues: Bowel/Bladder Function, DVT Prophylaxis, Falls Precautions, Fluid/Electrolyte/Nutrition Balance, Infection Protection, Pain Management Brief Synthesis of Preadmission Screen, Post-Admission Evaluation, and Therapy Evaluations: PT OT ST will al focus on regaining strength and ambulating and fall risk prevention and cognitive improvement Medical Prognosis: Good Anticipated Length of Stay: 7 days MONICO LUJAN DO Feb 14, 2020 12:10
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
[2020-02-14] MEDS ORDERED: LISI-552 PO (13:49)
[2020-02-14] MEDS ORDERED: OXYC10TA7 PO (13:49)
--- NOTE | 2020-02-14 13:57 | NUR ---
"RD ASSESSMENT PMHx: s/p R hip replacement; hypercholesterolemia; HTN; BPH PT INTERACTION: Pt was awake and pleasant during nutrition assessment. Pt states current appetite is fair and has been for some time. Note avg PO intake of 58% x1d, per chart review. Pt states following a regular diet at home, and has no issues with chewing/swallowing food. Pt states no recent issues with n/v/c/d at this time, and that his last BM was 02/11. Note pt currently on bowel regimen of Colace BID; Senna BID; and Miralax BID, per chart review. Pt states no recent wt changes. Note unable to determine recent wt hx, per chart review. ABNORMAL NUTRITION-RELATED LAB VALUES LOW: HIGH: BUN 27; glu 117; AST 160; ALT 243; alkphos 138 Est. kcal needs: 9615-9075 kcal | 15-20 kcal/kg Est. Pro needs: 86-107 g Pro | 0.8-1.0 g Pro/kg PES STATEMENT: Inadequate oral intake (NI-2.1) related to loss of appetite as evidenced by pt interview | avg PO intake 58% x1d INTERVENTION: Continue with current diet order of Regular diet. Pt may benefit from nutrition supplementation if PO intake declines. Will continue to follow and reassess as pt needs, intake, and status change. MONITOR/EVALUATE: PO Intake; Plan of Care; Hydration Status; Weight Status; Lab Values Janae Marin, MS, RD, LD"
--- NOTE | 2020-02-14 14:12 | Physical Therapy Daily Note ---
PT Daily Note-Current Subjective Pt in bed lying on L side, asleep, upon arrival. Pt woken up and agrees to therapy tx. Pain Numeric Pain Scale: 3 Location: Right Location Body Site: Hip Mental Status Patient Orientation: Person, Place, Time, Situation, [place] Attachments: Other-See Comments (ANNMARIE Hicks) Transfers SCALE: Activities may be completed with or without assistive devices. 1-Molnimweoa-fyronrm completes the activity by him/herself with no assistance from a helper. 5-Set-up or Clean-up Assistance-helper sets up or cleans up; patient completes activity. [place] assists only prior to or following the activity. 4-Supervision or Touching Assistance-helper provides verbal cues and/or touching/steadying and/or contact guard assistance as patient completes activity. Assistance may be provided throughout the activity or intermittently. 3-Partial/Moderate Assistance-helper does LESS THAN HALF the effort. [place] lifts, holds or supports trunk or limbs, but provides less than half the effort. 2-Substantial/Maximal Assistance-helper does MORE THAN HALF the effort. [place] lifts or holds trunk or limbs and provides more than half the effort. 0-Ctajyysyc-yvtgnn does ALL the effort. Patient does none of the effort to complete the activity. Or, the assistance of 2 or more helpers is required for the patient to complete the activity. If activity was not attempted, code reason: 7-Patient Refused. 9-Not Applicable-not attempted and the patient did not perform the activity before the current illness, exacerbation or injury. 10-Not Attempted due to Environmental Limitations-(lack of equipment, weather restraints, etc.). 88-Not Attempted due to Medical Conditions or Safety Concerns. Roll Left & Right (QC): 4 Exercises Supine Ex: Ankle pumps, Quad Set, Glut sets, Heel Slides, Short Arc Quads Supine Reps: 15 (x3 reps) Treatments Supine Ex completed. Pt educated on hip precautions. Pt in bed, bed alarm on, bedside table and call light w/in reach and all needs met at end of tx. Assessment Current Status: Good Progress Pt very drowsy throughout tx, but participated. PT Short Term Goals Short Term Goals Time Frame: Feb 20, 2020 Roll Left & Right: 6 Sit to lyin Lying to sitting on side of be: 4 Sit to stand: 4 Chair/ecw-aw-lieze transfer: 4 Walk 10 feet: 4 Walk 50 feet with two turns: 4 Walk 150 feet: 4 PT Longterm Goals Longterm Goals PT Longterm Goals Time Frame: Mar 05, 2020 Roll Left & Right (QC): 6 Sit to Lying (QC): 6 Lying-Sitting on Side/Bed(QC): 6 Sit to Stand (QC): 6 Chair/Ltk-mg-Buwsw Xfer(QC): 6 Toilet Transfer (QC): 6 Car Transfer (QC): 6 Does the Patient Walk: Yes Walk 10 feet (QC): 6 Walk 50ft with 2 Turns (QC): 6 Walk 150 ft (QC): 6 Walking 10ft on Uneven Surface: 6 1 Step (curb) (QC): 4 4 Steps (QC): 4 12 Steps (QC): 4 Picking up an Object (QC): 88 Does the Pt use WC or Scooter?: No Wheel 50 feet with 2 turns (QC: 9 Type: N/A Wheel 150 feet: 9 Type: N/A PT Plan Problem List Problem List: Activity Tolerance, Functional Strength, Safety, Balance, Gait, Transfer, Bed Mobility, ROM Treatment/Plan Treatment Plan: Continue Plan of Care Treatment Plan: Bed Mobility, Education, Functional Activity Gareth, Functional Strength, Group Therapy, Gait, Safety, Therapeutic Exercise, Transfers Treatment Duration: Mar 05, 2020 Frequency: At least 5 of 7 days/Wk (IRF) Estimated Hrs Per Day: 1.5 hours per day Patient and/or Family Agrees t: Yes Safety Risks/Education Patient Education: Correct Positioning, Safety Issues Teaching Recipient: Patient Teaching Methods: Discussion Response to Teaching: Verbalize Understanding Time/GCodes Time In: 1330 Time Out: 1345 Total Billed Treatment Time: 15 Total Billed Treatment 1, EX (15m) INDIA LEZAMA MAINTENANCE SERVICE SUPERVISOR Feb 14, 2020 14:12
[2020-02-14 17:17] VITALS: BP 115/75
[2020-02-14 21:53] LABS: HEPATITIS C ANTIBODY C Non-Reactive (Non-Reactive)
[2020-02-14] MEDS: FENOFIBRATE 134 MG (LOFIBRA) CAPSULE PO SCH (22:16)
[2020-02-15] MEDS: oxyCODONE/APAP 5/325MG (PERCOCET 5) TABLET PO PRN ×5 (03:16→23:03)
[2020-02-15 06:21] VITALS: BP 110/76
[2020-02-15] MEDS: MELOXICAM 7.5 MG (MOBIC) TABLET PO SCH ×2 (08:32→21:38)
[2020-02-15] MEDS: DULoxetine 30 MG (CYMBALTA) CAP PO SCH (08:32)
[2020-02-15] MEDS: ASPIRIN E.C. 81 MG (ECOTRIN) TAB PO SCH (08:32)
[2020-02-15] MEDS: PANTOPRAZOLE 40 MG (PROTONIX) TAB PO SCH (08:32)
[2020-02-15] MEDS: SENNA W/DOCUSATE (SENOKOT S) TABLET PO SCH ×2 (08:33→21:38)
[2020-02-15] MEDS: CARVEDILOL 12.5 MG (COREG) TABLET PO SCH ×2 (08:33→21:38)
[2020-02-15] MEDS: DOCUSATE SODIUM 100 MG (COLACE) CAP PO SCH ×2 (08:33→21:39)
[2020-02-15] MEDS: GABAPENTIN 600 MG (NEURONTIN) TAB PO SCH ×3 (08:33→21:39)
--- NOTE | 2020-02-15 09:51 | Speech Therapy Daily Note ---
Speech Daily Progress Note Subjective Date Seen by Provider: Feb 15, 2020 Time Seen by Provider: 00:30 Patient was resting in his bed watching t.v. when I entered his room. He was very pleasant and participated better today. Objective Patient completed a series of q/a related to his daily needs and what he will need upon his return home with 90% given minimal redirection. Assessment Assessment Current Status: Good Progress Treatment Plan Continue Plan of Care Speech Short Term Goals Short Term Goals Short Term Goals 1) Patient will complete memory tasks related to his daily needs with 90% or greater given minimal cuing. 2) Patient will complete safety awareness tasks related to his daily needs with 90% or greater given minimal cuing. 3) Patient will complete problem solving tasks related to his daily needs with 90% or greater given minimal cuing. Speech Candle Wrapper Goals Residential Goals Patient will improve cognitive-communication necessary for safety and daily living tasks with minimal assist. Speech-Plan Patient/Family Goals Patient/Family Goals: Patient plans on returning home with family support upon hospital discharge. Treatment Plan Speech Therapy Treatment Plan: Continue Plan of Care Treatment Duration: Feb 29, 2020 Frequency: 5 times per week Estimated Hrs Per Day: .5 hour per day Rehab Potential: Fair Barriers to Learning: Patient's medical hx and cognitive deficits Pt/Family Agrees to Plan: Yes Safety Risks/Education Teaching Recipient: Patient Teaching Methods: Demonstration, Discussion Response to Teaching: Verbalize Understanding, Return Demonstration Education Topics Provided: Continued safety within his room and communication of wants/needs Time Speech Therapy Time In: 09:00 Speech Therapy Time Out: 09:30 Total Billed Time: 30 Billed Treatment Time 1MIMI BETHAN[address] ST Feb 15, 2020 09:51
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
--- NOTE | 2020-02-15 10:44 | Occupational Ther Daily Note ---
OT Current Status-Daily Note Subjective Pt alert, lying in bed. Pt agrees to therapy. No c/o pain at this time. Was worried about his home medication prescriptions. Mental Status/Objective Patient Orientation: Person, Place, Time, Situation ADL-Treatment Pt agrees to shower. Supine to EOB with HOB slightly elevated. Pt stood at toilet to urinate with CGA for safety. Transferred into shower with close SBA for safety using shower bench, grabbars and FWW. SBA while in stance cleansing buttocks, verbal cues to use shower bench to sit on for safety. After set up, pt donned shirt by self. Using AE and verbal instructions during use, pt able to don lower body clothing with SBA. Pt stood at sink to complete oral care, supervision. Therapy Code Descriptions/Definitions Functional [place] Measure: 0=Not Assessed/NA 4=Minimal Assistance 1=Total Assistance 5=Supervision or Setup 2=Maximal Assistance 6=Modified [place] 3=Moderate Assistance 7=Complete IndependenceSCALE: Activities may be completed with or without assistive devices. 9-Exytcdimku-leivwvn completes the activity by him/herself with no assistance from a helper. 5-Set-up or Clean-up Assistance-helper sets up or cleans up; patient completes activity. [place] assists only prior to or following the activity. 4-Supervision or Touching Assistance-helper provides verbal cues and/or touching/steadying and/or contact guard assistance as patient completes activity. Assistance may be provided throughout the activity or intermittently. 3-Partial/Moderate Assistance-helper does LESS THAN HALF the effort. [place] lifts, holds or supports trunk or limbs, but provides less than half the effort. 2-Substantial/Maximal Assistance-helper does MORE THAN HALF the effort. [place] lifts or holds trunk or limbs and provides more than half the effort. 6-Tvnvzonbr-csvubz does ALL the effort. Patient does none of the effort to complete the activity. Or, the assistance of 2 or more helpers is required for the patient to complete the activity. If activity was not attempted, code reason: 7-Patient Refused. 9-Not Applicable-not attempted and the patient did not perform the activity before the current illness, exacerbation or injury. 10-Not Attempted due to Environmental Limitations-(lack of equipment, weather restraints, etc.). 88-Not Attempted due to Medical Conditions or Safety Concerns. Oral Hygiene (QC): 4 Shower/Bathe Self (QC): 4 Upper Body Dressing (QC): 5 Lower Body Dressing (QC): 4 On/Off Footwear: 4 Toileting Hygiene (QC): 4 Toilet Transfer (QC): 4 Other Treatment Pt ambulated to therapy gym to complete UE strengthening exercises to increase strength and activity tolerance for daily functional tasks. 12 min duration on arm bike at 20 velazquez resistance. Medium resistance theraputty with small objects to manipulate for fine motor strengthening and dexterity. PT took over care of pt in therapy gym. All needs met in room. OT Prison Goals Outreach Director Goals Time Frame: Mar 05, 2020 Eating (QC): 6 Oral Hygiene (QC): 6 Toileting Hygiene (QC): 6 Shower/Bathe Self (QC): 6 Upper Body Dressing (QC): 6 Lower Body Dressing (QC): 6 On/Off Footwear (QC): 6 Additional Goals: 1-Demonstrate ADL Tasks, 2-Verbalize Understanding, 3-ImproveStrength/Gareth 1=Demonstrate adherence to instructed precautions during ADL tasks. 2=Patient will verbalize/demonstrate understanding of assistive devices/modifications for ADL. 3=Patient will improve strength/tolerance for activity to enable patient to perform ADL's. OT Education/Plan Problem List/Assessment Assessment: Impaired Coordination, Impaired Funct Balance, Impaired Self-Care Skills, Restricted Funct UE ROM Pt s/p right NITA with decreased mobility and ADL functioning. Pt to benefit from skilled OT intervention for ADL training, transfers, strengthening, adaptive equipment education, and safety education to increase level of independence and allow safe discharge home. Discharge Recommendations Plan/Recommendations: Continue POC Treatment Plan/Plan of Care Patient would benefit from OT for education, treatment and training to promote independence in ADL's, mobility, safety and/or upper extremity function for A DL's. Plan of Care: ADL Retraining, Functional Mobility, Group Exercise/Act as Ind, UE Funct Exercise/Act Treatment Duration: Mar 05, 2020 Frequency: At least 5 of 7 days/Wk (IRF) Estimated Hrs Per Day: 1.5 hours per day Agreement: Yes Rehab Potential: Fair Time/GCodes Start Time: 09:30 Stop Time: 10:30 Total Time Billed (hr/min): 60 Billed Treatment Time 1 visit-ADL 3 (45 min) EX 1 (15 min) MATILDA SUAZO Feb 15, 2020 10:44
[2020-02-15] MEDS: polyethylene glycoL POWDER 17 GM (MIRALAX) PACK PO SCH ×2 (11:21→21:40)
--- NOTE | 2020-02-15 11:26 | Physical Therapy Daily Note ---
PT Daily Note-Current Subjective Patient just complete with OT. Pain Numeric Pain Scale: 3 Location: Right Location Body Site: Hip Pain Description: Acute Mental Status Patient Orientation: Normal For Age Transfers SCALE: Activities may be completed with or without assistive devices. 5-Pjvtpuycbd-xfqzfyo completes the activity by him/herself with no assistance from a helper. 5-Set-up or Clean-up Assistance-helper sets up or cleans up; patient completes activity. [place] assists only prior to or following the activity. 4-Supervision or Touching Assistance-helper provides verbal cues and/or touching/steadying and/or contact guard assistance as patient completes activity. Assistance may be provided throughout the activity or intermittently. 3-Partial/Moderate Assistance-helper does LESS THAN HALF the effort. [place] lifts, holds or supports trunk or limbs, but provides less than half the effort. 2-Substantial/Maximal Assistance-helper does MORE THAN HALF the effort. [place] lifts or holds trunk or limbs and provides more than half the effort. 1-Fhjvniabk-nbufmp does ALL the effort. Patient does none of the effort to complete the activity. Or, the assistance of 2 or more helpers is required for the patient to complete the activity. If activity was not attempted, code reason: 7-Patient Refused. 9-Not Applicable-not attempted and the patient did not perform the activity before the current illness, exacerbation or injury. 10-Not Attempted due to Environmental Limitations-(lack of equipment, weather restraints, etc.). 88-Not Attempted due to Medical Conditions or Safety Concerns. Sit to Stand (QC): 5 Gait Training Does the Patient Walk?: Yes Distance: 500' x 2/300' x 1 Walk 10 feet (QC): 5 Walk 50 ft with 2 Turns(QC): 5 Walk 150 ft (QC): 5 Gait Assistive Device: FWW steady, slightly antalgic gait sequence Wheelchair Training Does the Pt Use a Wheelchair?: No Exercises Supine Ex: Ankle pumps, Quad Set, Heel Slides Supine Reps: 15 (in recliner) Seated Therapy Exercises: Ankle pumps, Long arc quads Seated Reps: 15 (3 sets) NuStep Minutes: 20 NuStep Workload: 5 Assessment Patient progressing with treatment plan and is up in recliner with needs met. PT to increase activity as tolerated by patient. PT Short Term Goals Short Term Goals Time Frame: Feb 20, 2020 Roll Left & Right: 6 Sit to lyin Lying to sitting on side of be: 4 Sit to stand: 4 Chair/qzm-oy-cvzpc transfer: 4 Walk 10 feet: 4 Walk 50 feet with two turns: 4 Walk 150 feet: 4 PT Collection Analyst Goals Correction Goals PT Correction Goals Time Frame: Mar 05, 2020 Roll Left & Right (QC): 6 Sit to Lying (QC): 6 Lying-Sitting on Side/Bed(QC): 6 Sit to Stand (QC): 6 Chair/Blt-ec-Nkqed Xfer(QC): 6 Toilet Transfer (QC): 6 Car Transfer (QC): 6 Does the Patient Walk: Yes Walk 10 feet (QC): 6 Walk 50ft with 2 Turns (QC): 6 Walk 150 ft (QC): 6 Walking 10ft on Uneven Surface: 6 1 Step (curb) (QC): 4 4 Steps (QC): 4 12 Steps (QC): 4 Picking up an Object (QC): 88 Does the Pt use WC or Scooter?: No Wheel 50 feet with 2 turns (QC: 9 Type: N/A Wheel 150 feet: 9 Type: N/A PT Plan Treatment/Plan Treatment Plan: Continue Plan of Care Treatment Plan: Bed Mobility, Education, Functional Activity Gareth, Functional Strength, Group Therapy, Gait, Safety, Therapeutic Exercise, Transfers Treatment Duration: Mar 05, 2020 Frequency: At least 5 of 7 days/Wk (IRF) Estimated Hrs Per Day: 1.5 hours per day Patient and/or Family Agrees t: Yes Time/GCodes Time In: 1030 Time Out: 1120 Total Billed Treatment Time: 50 Total Billed Treatment 1 visit EX x 2 35 min GT 15 min JUANY EASTMAN PT Feb 15, 2020 11:26
--- NOTE | 2020-02-15 12:13 | Occupational Ther Daily Note ---
OT Current Status-Daily Note Subjective Pt alert, sitting in recliner. Pt agrees to therapy. No c/o pain at this time. Mental Status/Objective Patient Orientation: Person, Place, Time, Situation ADL-Treatment Pt has decreased dexterity in B hands though is able to pinch and hold utensils to cut food. Pt uses R hand to manipulate eating utensils to feed self. Pt has difficulty opening items though is able to complete with increased time. Pt reaches and sustains grasp and stability with eating activity. After session, pt continues to eat lunch. Call light/phone in reach. All needs met in room. Therapy Code Descriptions/Definitions Functional [place] Measure: 0=Not Assessed/NA 4=Minimal Assistance 1=Total Assistance 5=Supervision or Setup 2=Maximal Assistance 6=Modified [place] 3=Moderate Assistance 7=Complete IndependenceSCALE: Activities may be completed with or without assistive devices. 7-Eqnfmezmbj-puqyrij completes the activity by him/herself with no assistance from a helper. 5-Set-up or Clean-up Assistance-helper sets up or cleans up; patient completes activity. [place] assists only prior to or following the activity. 4-Supervision or Touching Assistance-helper provides verbal cues and/or touching/steadying and/or contact guard assistance as patient completes activity. Assistance may be provided throughout the activity or intermittently. 3-Partial/Moderate Assistance-helper does LESS THAN HALF the effort. [place] lifts, holds or supports trunk or limbs, but provides less than half the effort. 2-Substantial/Maximal Assistance-helper does MORE THAN HALF the effort. [place] lifts or holds trunk or limbs and provides more than half the effort. 1-Bfgwsqzso-keeugg does ALL the effort. Patient does none of the effort to complete the activity. Or, the assistance of 2 or more helpers is required for the patient to complete the activity. If activity was not attempted, code reason: 7-Patient Refused. 9-Not Applicable-not attempted and the patient did not perform the activity before the current illness, exacerbation or injury. 10-Not Attempted due to Environmental Limitations-(lack of equipment, weather restraints, etc.). 88-Not Attempted due to Medical Conditions or Safety Concerns. Eating (QC): 6 OT Factory Representative Goals Longterm Goals Time Frame: Mar 05, 2020 Eating (QC): 6 Oral Hygiene (QC): 6 Toileting Hygiene (QC): 6 Shower/Bathe Self (QC): 6 Upper Body Dressing (QC): 6 Lower Body Dressing (QC): 6 On/Off Footwear (QC): 6 Additional Goals: 1-Demonstrate ADL Tasks, 2-Verbalize Understanding, 3- ImproveStrength/Gareth 1=Demonstrate adherence to instructed precautions during ADL tasks. 2=Patient will verbalize/demonstrate understanding of assistive devices/modifications for ADL. 3=Patient will improve strength/tolerance for activity to enable patient to perform ADL's. OT Education/Plan Problem List/Assessment Assessment: Decreased Activ Tolerance, Decreased UE Strength, Impaired Self- Care Skills, Restricted Funct UE ROM Pt s/p right NITA with decreased mobility and ADL functioning. Pt to benefit from skilled OT intervention for ADL training, transfers, strengthening, adaptive equipment education, and safety education to increase level of independence and allow safe discharge home. Discharge Recommendations Plan/Recommendations: Continue POC Treatment Plan/Plan of Care Patient would benefit from OT for education, treatment and training to promote independence in ADL's, mobility, safety and/or upper extremity function for ADL's. Plan of Care: ADL Retraining, Functional Mobility, Group Exercise/Act as Ind, UE Funct Exercise/Act Treatment Duration: Mar 05, 2020 Frequency: At least 5 of 7 days/Wk (IRF) Estimated Hrs Per Day: 1.5 hours per day Agreement: Yes Rehab Potential: Fair Time/GCodes Start Time: 11:58 Stop Time: 12:13 Total Time Billed (hr/min): 15 Billed Treatment Time 1 visit-ADL 1 (15 min) MATILDA SUAZO Feb 15, 2020 12:13
--- NOTE | 2020-02-15 14:00 | Physical Therapy Daily Note ---
PT Daily Note-Current Subjective PT rates pain 8/10 (R) thigh and LB. Pt states his hip pain and function are already better now than they were prior to surgery. Transfers SCALE: Activities may be completed with or without assistive devices. 0-Recsggkxbn-ekrjnve completes the activity by him/herself with no assistance from a helper. 5-Set-up or Clean-up Assistance-helper sets up or cleans up; patient completes activity. [place] assists only prior to or following the activity. 4-Supervision or Touching Assistance-helper provides verbal cues and/or touching/steadying and/or contact guard assistance as patient completes activity. Assistance may be provided throughout the activity or intermittently. 3-Partial/Moderate Assistance-helper does LESS THAN HALF the effort. [place] lifts, holds or supports trunk or limbs, but provides less than half the effort. 2-Substantial/Maximal Assistance-helper does MORE THAN HALF the effort. [place] lifts or holds trunk or limbs and provides more than half the effort. 5-Xtlhhifen-eyvehc does ALL the effort. Patient does none of the effort to complete the activity. Or, the assistance of 2 or more helpers is required for the patient to complete the activity. If activity was not attempted, code reason: 7-Patient Refused. 9-Not Applicable-not attempted and the patient did not perform the activity before the current illness, exacerbation or injury. 10-Not Attempted due to Environmental Limitations-(lack of equipment, weather restraints, etc.). 88-Not Attempted due to Medical Conditions or Safety Concerns. Gait Training Gait Assistive Device: FWW Pt amb with FWW x 225', CGA-SBA slow and steady. Stair Training #of Steps: 4 Stairs: Pattern: Step to Min A with walker placement, max vc's for sequence. Pt steady throughout, CGA Exercises NuStep Minutes: 10 NuStep Workload: 3 Assessment Current Status: Good Progress Pt mod (I) with mobility, good performance. Pt progressing appropriately toward goals. Pt resting in recliner with call light and all needs met. PT Short Term Goals Short Term Goals Time Frame: Feb 20, 2020 Roll Left & Right: 6 Sit to lyin Lying to sitting on side of be: 4 Sit to stand: 4 Chair/nnk-jo-yznba transfer: 4 Walk 10 feet: 4 Walk 50 feet with two turns: 4 Walk 150 feet: 4 PT Admin Secretary Goals Admin Secretary Goals PT Admin Secretary Goals Time Frame: Mar 05, 2020 Roll Left & Right (QC): 6 Sit to Lying (QC): 6 Lying-Sitting on Side/Bed(QC): 6 Sit to Stand (QC): 6 Chair/Zpn-wq-Tkzkp Xfer(QC): 6 Toilet Transfer (QC): 6 Car Transfer (QC): 6 Does the Patient Walk: Yes Walk 10 feet (QC): 6 Walk 50ft with 2 Turns (QC): 6 Walk 150 ft (QC): 6 Walking 10ft on Uneven Surface: 6 1 Step (curb) (QC): 4 4 Steps (QC): 4 12 Steps (QC): 4 Picking up an Object (QC): 88 Does the Pt use WC or Scooter?: No Wheel 50 feet with 2 turns (QC: 9 Type: N/A Wheel 150 feet: 9 Type: N/A PT Plan Treatment/Plan Treatment Plan: Continue Plan of Care Treatment Plan: Bed Mobility, Education, Functional Activity Gareth, Functional Strength, Group Therapy, Gait, Safety, Therapeutic Exercise, Transfers Treatment Duration: Mar 05, 2020 Frequency: At least 5 of 7 days/Wk (IRF) Estimated Hrs Per Day: 1.5 hours per day Patient and/or Family Agrees t: Yes Time/GCodes Time In: 1305 Time Out: 1330 Total Billed Treatment Time: 25 Total Billed Treatment 1, ther ex 10', Gait 15' DEMETRA KNOWLES CPTA Feb 15, 2020 14:00
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
[2020-02-15 16:41] VITALS: BP 106/58
[2020-02-15] MEDS: FENOFIBRATE 134 MG (LOFIBRA) CAPSULE PO SCH (21:38)
--- NOTE | 2020-02-16 03:00 | NUR ---
PATIENT HAS NOT HAD B/M DESPITE BEING COOPERATIVE WITH CURRENT BOWEL PROGRAM ORDERS OF MIRALAX, DOCUSATE, AND SENNA. THIS NURSE ADVISED PATIENT THAT THE NEXT STEP IS SUPPOSITORY, AND THAT WE SHOULD DO THAT THIS MORNING. PATIENT ADAMANTLY REFUSED, STATING THAT HE DOES NOT WANT ANYTHING "PUT UP THERE, JUST GIVE ME SOMETHING TO DRINK."
[2020-02-16] MEDS: oxyCODONE/APAP 5/325MG (PERCOCET 5) TABLET PO PRN ×5 (03:08→21:20)
[2020-02-16 06:28] VITALS: BP 114/71
[2020-02-16 08:00] VITALS: BP 112/75
--- NOTE | 2020-02-16 08:00 | NUR ---
AGREEABLE TO TRY SUPPOSITORY BY LATE MORNING IF AM LAXATIVES DON'T WORK. 1+ EDEMA RIGHT LEG AND AGREEABLE TO TRY ANNMARIE BARTLETT.
--- NOTE | 2020-02-16 08:40 | Physical Therapy Daily Note ---
PT Daily Note-Current Subjective Agrees to PT. Reports he is feeling better each day. Transfers SCALE: Activities may be completed with or without assistive devices. 2-Gmzkqjtchp-qdwkxgu completes the activity by him/herself with no assistance from a helper. 5-Set-up or Clean-up Assistance-helper sets up or cleans up; patient completes activity. [place] assists only prior to or following the activity. 4-Supervision or Touching Assistance-helper provides verbal cues and/or touching/steadying and/or contact guard assistance as patient completes activity. Assistance may be provided throughout the activity or intermittently. 3-Partial/Moderate Assistance-helper does LESS THAN HALF the effort. [place] lifts, holds or supports trunk or limbs, but provides less than half the effort. 2-Substantial/Maximal Assistance-helper does MORE THAN HALF the effort. [place] lifts or holds trunk or limbs and provides more than half the effort. 6-Qdkkynkjo-fapwvw does ALL the effort. Patient does none of the effort to complete the activity. Or, the assistance of 2 or more helpers is required for the patient to complete the activity. If activity was not attempted, code reason: 7-Patient Refused. 9-Not Applicable-not attempted and the patient did not perform the activity before the current illness, exacerbation or injury. 10-Not Attempted due to Environmental Limitations-(lack of equipment, weather restraints, etc.). 88-Not Attempted due to Medical Conditions or Safety Concerns. Lying to Sitting/Side of Bed(Q: 4 Sit to Stand (QC): 4 Gait Training Distance: 200 ft and 350 ft Gait Assistive Device: FWW SBA with gait; steady Exercises NuStep Minutes: 10 (to promote LE strength and functional ROM) Treatments PT in chair post treatment with needs met and chair alarm activated. Assessment Current Status: Good Progress PT Short Term Goals Short Term Goals Time Frame: Feb 20, 2020 Roll Left & Right: 6 Sit to lyin Lying to sitting on side of be: 4 Sit to stand: 4 Chair/djg-nf-gayra transfer: 4 Walk 10 feet: 4 Walk 50 feet with two turns: 4 Walk 150 feet: 4 PT Senior Patrol Agent Goals Retirement Goals PT Retirement Goals Time Frame: Mar 05, 2020 Roll Left & Right (QC): 6 Sit to Lying (QC): 6 Lying-Sitting on Side/Bed(QC): 6 Sit to Stand (QC): 6 Chair/Ufx-yy-Jxrkq Xfer(QC): 6 Toilet Transfer (QC): 6 Car Transfer (QC): 6 Does the Patient Walk: Yes Walk 10 feet (QC): 6 Walk 50ft with 2 Turns (QC): 6 Walk 150 ft (QC): 6 Walking 10ft on Uneven Surface: 6 1 Step (curb) (QC): 4 4 Steps (QC): 4 12 Steps (QC): 4 Picking up an Object (QC): 88 Does the Pt use WC or Scooter?: No Wheel 50 feet with 2 turns (QC: 9 Type: N/A Wheel 150 feet: 9 Type: N/A PT Plan Problem List Problem List: Activity Tolerance, Functional Strength, Safety, Balance, Gait, Transfer Treatment/Plan Treatment Plan: Continue Plan of Care Treatment Plan: Bed Mobility, Education, Functional Activity Gareth, Functional Strength, Group Therapy, Gait, Safety, Therapeutic Exercise, Transfers Treatment Duration: Mar 05, 2020 Frequency: At least 5 of 7 days/Wk (IRF) Estimated Hrs Per Day: 1.5 hours per day Patient and/or Family Agrees t: Yes Safety Risks/Education Patient Education: Safety Issues Teaching Recipient: Patient Teaching Methods: Discussion Response to Teaching: Verbalize Understanding Time/GCodes Time In: 815 Time Out: 843 Total Billed Treatment Time: 23 Total Billed Treatment visit GT 13 EX 10 MATILDA GARCIA PT Feb 16, 2020 08:40
[2020-02-16] MEDS: CARVEDILOL 12.5 MG (COREG) TABLET PO SCH ×2 (08:51→21:18)
[2020-02-16] MEDS: SENNA W/DOCUSATE (SENOKOT S) TABLET PO SCH ×2 (08:51→21:18)
[2020-02-16] MEDS: MELOXICAM 7.5 MG (MOBIC) TABLET PO SCH ×2 (08:51→21:18)
[2020-02-16] MEDS: PANTOPRAZOLE 40 MG (PROTONIX) TAB PO SCH (08:51)
[2020-02-16] MEDS: DULoxetine 30 MG (CYMBALTA) CAP PO SCH (08:51)
[2020-02-16] MEDS: DOCUSATE SODIUM 100 MG (COLACE) CAP PO SCH ×2 (08:51→21:17)
[2020-02-16] MEDS: ASPIRIN E.C. 81 MG (ECOTRIN) TAB PO SCH (08:51)
[2020-02-16] MEDS: GABAPENTIN 600 MG (NEURONTIN) TAB PO SCH ×3 (08:51→21:18)
[2020-02-16] MEDS: polyethylene glycoL POWDER 17 GM (MIRALAX) PACK PO SCH ×2 (08:56→21:20)
--- NOTE | 2020-02-16 12:00 | NUR ---
LARGE BM AFTER BEING MEDICATED WITH DULCOLAX SUPPOSITORY. LARGE AMOUNT OF BLOODY DRAINAGE ON RIGHT HIP DRESSING. WAS MARKED THIS AM AND NO FURTHER DRAINAGE. PIC WAS SENT TO DR. DURAN. ORDER TO APPLY ISLAND DRESSING AND CHANGE ONLY IF SOILED AND NOTIFY HIM IF LARGE AMOUNT OF DRAINAGE CONTINUES. NOT GETTING FLUIDS ON MEAL TRAYS. DIETARY NOTIFIED OF FLUID RESTRICTION DC'D. PATIENT IS PLEASANT AND TALKATIVE, BUT DIFFICULT TO UNDERSTAND.
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
[2020-02-16 16:14] VITALS: BP 107/69
--- NOTE | 2020-02-16 17:00 | NUR ---
NO FURTHER DRAINAGE ON DRESSING NOTED.
[2020-02-16] MEDS: FENOFIBRATE 134 MG (LOFIBRA) CAPSULE PO SCH (21:17)
[2020-02-17] MEDS: oxyCODONE/APAP 5/325MG (PERCOCET 5) TABLET PO PRN ×4 (01:31→20:50)
[2020-02-17 05:13] VITALS: BP 115/74
[2020-02-17 08:00] VITALS: BP 119/73
[2020-02-17] MEDS: PANTOPRAZOLE 40 MG (PROTONIX) TAB PO SCH (09:35)
[2020-02-17] MEDS: ASPIRIN E.C. 81 MG (ECOTRIN) TAB PO SCH (09:35)
[2020-02-17] MEDS: polyethylene glycoL POWDER 17 GM (MIRALAX) PACK PO SCH ×2 (09:35→20:54)
[2020-02-17] MEDS: CARVEDILOL 12.5 MG (COREG) TABLET PO SCH ×2 (09:35→20:50)
[2020-02-17] MEDS: GABAPENTIN 600 MG (NEURONTIN) TAB PO SCH ×3 (09:35→20:50)
[2020-02-17] MEDS: MELOXICAM 7.5 MG (MOBIC) TABLET PO SCH ×2 (09:35→20:50)
[2020-02-17] MEDS: DOCUSATE SODIUM 100 MG (COLACE) CAP PO SCH ×2 (09:35→20:54)
[2020-02-17] MEDS: DULoxetine 30 MG (CYMBALTA) CAP PO SCH (09:35)
[2020-02-17] MEDS: SENNA W/DOCUSATE (SENOKOT S) TABLET PO SCH ×2 (09:37→20:54)
--- NOTE | 2020-02-17 13:00 | NUR ---
NAPPING QUITE A BIT TODAY. IS AMBULATING WELL. SMALL AMOUNT OF DRAINAGE ON RIGHT HIP DRESSING AND LEFT ALONE ORDERED BY DR. DURAN.
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
[2020-02-17 17:17] VITALS: BP 110/73
[2020-02-17] MEDS: FENOFIBRATE 134 MG (LOFIBRA) CAPSULE PO SCH (20:50)
[2020-02-18] MEDS: oxyCODONE/APAP 5/325MG (PERCOCET 5) TABLET PO PRN ×5 (00:52→18:48)
[2020-02-18 05:27] VITALS: BP 111/78
[2020-02-18 07:19] LABS: BASOPHILS % (AUTO) 0 % (0-10); EOSINOPHILS # (AUTO) 0.2 10^3/uL (0.0-0.3); EOSINOPHILS % (AUTO) 2 % (0-10); HEMATOCRIT 32 % (40-54); HEMOGLOBIN 10.4 G/DL (13.3-17.7); LYMPHOCYTES # (AUTO) 2.6 X 10^3 (1.0-4.0); LYMPHOCYTES % (AUTO) 26 % (12-44); MEAN CORPUSCULAR HEMOGLOBIN 30 PG (25-34); MEAN CORPUSCULAR HGB CONC 33 G/DL (32-36); MEAN CORPUSCULAR VOLUME 92 FL (80-99); MEAN PLATELET VOLUME 9.4 FL (7.4-10.4); MONOCYTES # (AUTO) 0.8 X 10^3 (0.0-1.0); MONOCYTES % (AUTO) 8 % (0-12); NEUTROPHILS # (AUTO) 6.3 X 10^3 (1.8-7.8); NEUTROPHILS % (AUTO) 64 % (42-75); PLATELET COUNT 268 10^3/uL (130-400); RED CELL DISTRIBUTION WIDTH 15.6 % (10.0-14.5); WHITE BLOOD COUNT 9.8 10^3/uL (4.3-11.0)
[2020-02-18 07:37] LABS: ALBUMIN 3.3 GM/DL (3.2-4.5)
[2020-02-18 07:38] LABS: CHLORIDE 100 MMOL/L (98-107); POTASSIUM 4.6 MMOL/L (3.6-5.0); SODIUM 136 MMOL/L (135-145)
[2020-02-18 07:39] LABS: CALCIUM 9.2 MG/DL (8.5-10.1)
[2020-02-18 07:40] LABS: GLUCOSE 87 MG/DL (70-105); TOTAL PROTEIN 6.7 GM/DL (6.4-8.2)
[2020-02-18 07:41] LABS: CARBON DIOXIDE 27 MMOL/L (21-32)
[2020-02-18 07:42] LABS: BILIRUBIN,TOTAL 0.7 MG/DL (0.1-1.0)
[2020-02-18 07:43] LABS: ALKALINE PHOSPHATASE 174 U/L (40-136)
[2020-02-18 07:44] LABS: CREATININE SERUM 0.98 MG/DL (0.60-1.30); GFR ESTIMATED > 60
[2020-02-18 07:45] LABS: BUN/CREATININE RATIO 20
[2020-02-18 07:46] LABS: ALANINE AMINOTRANSFERASE 138 U/L (0-55)
[2020-02-18] MEDS: PANTOPRAZOLE 40 MG (PROTONIX) TAB PO SCH (08:44)
[2020-02-18] MEDS: DULoxetine 30 MG (CYMBALTA) CAP PO SCH (08:44)
[2020-02-18] MEDS: CARVEDILOL 12.5 MG (COREG) TABLET PO SCH ×2 (08:44→20:57)
[2020-02-18] MEDS: GABAPENTIN 600 MG (NEURONTIN) TAB PO SCH ×3 (08:45→20:58)
[2020-02-18] MEDS: DOCUSATE SODIUM 100 MG (COLACE) CAP PO SCH ×2 (08:45→21:01)
[2020-02-18] MEDS: MELOXICAM 7.5 MG (MOBIC) TABLET PO SCH ×2 (08:45→20:57)
[2020-02-18] MEDS: ASPIRIN E.C. 81 MG (ECOTRIN) TAB PO SCH (08:45)
[2020-02-18] MEDS: SENNA W/DOCUSATE (SENOKOT S) TABLET PO SCH ×2 (08:45→21:01)
[2020-02-18] MEDS: polyethylene glycoL POWDER 17 GM (MIRALAX) PACK PO SCH ×2 (08:54→21:01)
--- NOTE | 2020-02-18 09:43 | Speech Therapy Daily Note ---
Speech Daily Progress Note Subjective Date Seen by Provider: Feb 18, 2020 Time Seen by Provider: 00:30 Patient was resting in bed following breakfast. Patient was noted to be less talkative than his usual. Objective Patient completed a series of safety awareness q/a related to his daily needs at 80% with moderate repetitions/cues. Assessment Assessment Current Status: Good Progress Treatment Plan Continue Plan of Care Speech Short Term Goals Short Term Goals Short Term Goals 1) Patient will complete memory tasks related to his daily needs with 90% or greater given minimal cuing. 2) Patient will complete safety awareness tasks related to his daily needs with 90% or greater given minimal cuing. 3) Patient will complete problem solving tasks related to his daily needs with 90% or greater given minimal cuing. Speech Supervisor Parking Lot Goals Detention Goals Patient will improve cognitive-communication necessary for safety and daily living tasks with minimal assist. Speech-Plan Patient/Family Goals Patient/Family Goals: Patient states he will discharge to his parents home. Treatment Plan Speech Therapy Treatment Plan: Continue Plan of Care Treatment Duration: Feb 29, 2020 Frequency: 5 times per week Estimated Hrs Per Day: .5 hour per day Rehab Potential: Fair Barriers to Learning: Patient's medical history Pt/Family Agrees to Plan: Yes Safety Risks/Education Teaching Recipient: Patient Teaching Methods: Demonstration, Discussion Response to Teaching: Verbalize Understanding, Return Demonstration Education Topics Provided: Continued safety within his room and communication of wants/needs Time Speech Therapy Time In: 09:00 Speech Therapy Time Out: 09:30 Total Billed Time: 30 Billed Treatment Time [address] Feb 18, 2020 09:43
--- NOTE | 2020-02-18 10:30 | Physical Therapy Daily Note ---
PT Daily Note-Current Subjective Pain rated "8 and a quarter" prior to session. Pt. states it is feeling much better. Mental Status Patient Orientation: Person Transfers SCALE: Activities may be completed with or without assistive devices. 9-Solhynjqvb-vtecvdr completes the activity by him/herself with no assistance from a helper. 5-Set-up or Clean-up Assistance-helper sets up or cleans up; patient completes activity. [place] assists only prior to or following the activity. 4-Supervision or Touching Assistance-helper provides verbal cues and/or touching/steadying and/or contact guard assistance as patient completes activity. Assistance may be provided throughout the activity or intermittently. 3-Partial/Moderate Assistance-helper does LESS THAN HALF the effort. [place] lif ts, holds or supports trunk or limbs, but provides less than half the effort. 2-Substantial/Maximal Assistance-helper does MORE THAN HALF the effort. [place] lifts or holds trunk or limbs and provides more than half the effort. 0-Kdtinnmds-oyyptk does ALL the effort. Patient does none of the effort to complete the activity. Or, the assistance of 2 or more helpers is required for the patient to complete the activity. If activity was not attempted, code reason: 7-Patient Refused. 9-Not Applicable-not attempted and the patient did not perform the activity before the current illness, exacerbation or injury. 10-Not Attempted due to Environmental Limitations-(lack of equipment, weather restraints, etc.). 88-Not Attempted due to Medical Conditions or Safety Concerns. Lying to Sitting/Side of Bed(Q: 5 Sit to Stand (QC): 6 Weight Bearing Right Lower Extremity: Right Full Weight Bearing Left Lower Extremity: Left Full Weight Bearing Gait Training Does the Patient Walk?: Yes Distance: 2 x 250 ft Walk 150 ft (QC): 5 Gait Persons Needed: 1 Gait Assistive Device: FWW occasional cues needed to stay close to walker Wheelchair Training Does the Pt Use a Wheelchair?: No Exercises Seated Therapy Exercises: Ankle pumps, Sit to stand (10 reps), Long arc quads, Hip abd/add Seated Reps: 20 Standing: Hamstring curls, Heel/toe raises, Marching, Mini squats, Side steps, Step-ups (10 reps) Standing Reps: 15 NuStep Minutes: 15 NuStep Workload: 5 Treatments LE exercises, gait Assessment Current Status: Good Progress Pt. is progressing very well with therapy. Good performance with LE exercises. He is nearing full (I) with transfers and ambulation but does need cuing for walker safety intermittently. Pt. in bedside chair post session with call light and all needs met. PT Short Term Goals Short Term Goals Time Frame: Feb 20, 2020 Roll Left & Right: 6 Sit to lyin Lying to sitting on side of be: 4 Sit to stand: 4 Chair/cvd-vm-umsqn transfer: 4 Walk 10 feet: 4 Walk 50 feet with two turns: 4 Walk 150 feet: 4 PT Care Home Goals Care Home Goals PT Care Home Goals Time Frame: Mar 05, 2020 Roll Left & Right (QC): 6 Sit to Lying (QC): 6 Lying-Sitting on Side/Bed(QC): 6 Sit to Stand (QC): 6 Chair/Fvk-ce-Hbnai Xfer(QC): 6 Toilet Transfer (QC): 6 Car Transfer (QC): 6 Does the Patient Walk: Yes Walk 10 feet (QC): 6 Walk 50ft with 2 Turns (QC): 6 Walk 150 ft (QC): 6 Walking 10ft on Uneven Surface: 6 1 Step (curb) (QC): 4 4 Steps (QC): 4 12 Steps (QC): 4 Picking up an Object (QC): 88 Does the Pt use WC or Scooter?: No Wheel 50 feet with 2 turns (QC: 9 Type: N/A Wheel 150 feet: 9 Type: N/A PT Plan Treatment/Plan Treatment Plan: Continue Plan of Care Treatment Plan: Bed Mobility, Education, Functional Activity Gareth, Functional Strength, Group Therapy, Gait, Safety, Therapeutic Exercise, Transfers Treatment Duration: Mar 05, 2020 Frequency: At least 5 of 7 days/Wk (IRF) Estimated Hrs Per Day: 1.5 hours per day Patient and/or Family Agrees t: Yes Time/GCodes Time In: 930 Time Out: 1030 Total Billed Treatment Time: 60 Total Billed Treatment 1, Ex 45', GT 15' ANN YATES PT Feb 18, 2020 10:30
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
--- NOTE | 2020-02-18 11:59 | Occupational Ther Daily Note ---
OT Current Status-Daily Note Subjective Pt alert, sitting in recliner. Pt agrees to therapy. No c/o pain at this time. Mental Status/Objective Patient Orientation: Person, Place, Time, Situation ADL-Treatment Pt agrees to shower. Pt retrieved clothing from duffel and transported with FWW to bathroom. Pt stood at toilet to urinate. Using FWW, pt transferred into shower with grabbars and shower bench. Pt completed shower using grabbars and hand held shower with supervision in standing for safety when cleansing buttocks. Pt sat in chair, outside of shower, to complete dressing. Pt needed reminder about bending at hip, pt did not express any pain with movement though has difficulty with lifting knee or foot to thread clothing over feet. Pt donned pants/underwear over feet with verbal cue to place R LE in first, SBA for safety. Verbal cues for instructions to use sock aide then completed by self. Pt stood at sink to complete oral care, independently. Pt took increased time for recovery break before working on tub/shower transfer. Pt stated that he is living in an independent living apartment and that he will be with his parents for 2 weeks after ARU stay. Pt ambulated to tub/shower to work on tub bench transfer. Pt required verbal cues to complete then assist to lift R LE into tub, pt able to lift R LE out of tub. Pt stated that this wore him out. Pt then ambulated around ARU to increase activity tolerance prior to going to room. After therapy, pt sitting in recliner with call light/phone in reach. All needs met in room. Therapy Code Descriptions/Definitions Functional [place] Measure: 0=Not Assessed/NA 4=Minimal Assistance 1=Total Assistance 5=Supervision or Setup 2=Maximal Assistance 6=Modified [place] 3=Moderate Assistance 7=Complete IndependenceSCALE: Activities may be completed with or without assistive devices. 6-Vnvbacrvpt-zxeqlxp completes the activity by him/herself with no assistance from a helper. 5-Set-up or Clean-up Assistance-helper sets up or cleans up; patient completes activity. [place] assists only prior to or following the activity. 4-Supervision or Touching Assistance-helper provides verbal cues and/or touching/steadying and/or contact guard assistance as patient completes activity. Assistance may be provided throughout the activity or intermittently. 3-Partial/Moderate Assistance-helper does LESS THAN HALF the effort. [place] lifts, holds or supports trunk or limbs, but provides less than half the effort. 2-Substantial/Maximal Assistance-helper does MORE THAN HALF the effort. [place] lifts or holds trunk or limbs and provides more than half the effort. 3-Agcluxqyh-dxrlki does ALL the effort. Patient does none of the effort to complete the activity. Or, the assistance of 2 or more helpers is required for the patient to complete the activity. If activity was not attempted, code reason: 7-Patient Refused. 9-Not Applicable-not attempted and the patient did not perform the activity before the current illness, exacerbation or injury. 10-Not Attempted due to Environmental Limitations-(lack of equipment, weather restraints, etc.). 88-Not Attempted due to Medical Conditions or Safety Concerns. Eating (QC): 6 (Pt has demonstrated ability to complete own set up and use regular utensils to eat.) Oral Hygiene (QC): 6 Shower/Bathe Self (QC): 4 Upper Body Dressing (QC): 6 Lower Body Dressing (QC): 4 On/Off Footwear: 4 Toileting Hygiene (QC): 6 Toilet Transfer (QC): 4 OT [place] Goals Fire[place] Goals Time Frame: Mar 05, 2020 Eating (QC): 6 (met) Oral Hygiene (QC): 6 (met) Toileting Hygiene (QC): 6 Shower/Bathe Self (QC): 6 (met) Upper Body Dressing (QC): 6 Lower Body Dressing (QC): 6 On/Off Footwear (QC): 6 Additional Goals: 1-Demonstrate ADL Tasks, 2-Verbalize Understanding, 3- ImproveStrength/Gareth 1=Demonstrate adherence to instructed precautions during ADL tasks. 2=Patient will verbalize/demonstrate understanding of assistive devices/modifications for ADL. 3=Patient will improve strength/tolerance for activity to enable patient to perform ADL's. OT Education/Plan Problem List/Assessment Assessment: Decreased Activ Tolerance, Decreased Safety Aware, Impaired Self- Care Skills Pt s/p right NITA with decreased mobility and ADL functioning. Pt to benefit from skilled OT intervention for ADL training, transfers, strengthening, adaptive equipment education, and safety education to increase level of independence and allow safe discharge home. Discharge Recommendations Plan/Recommendations: Continue POC Treatment Plan/Plan of Care Patient would benefit from OT for education, treatment and training to promote independence in ADL's, mobility, safety and/or upper extremity function for ADL's. Plan of Care: ADL Retraining, Functional Mobility, Group Exercise/Act as Ind, UE Funct Exercise/Act Treatment Duration: Mar 05, 2020 Frequency: At least 5 of 7 days/Wk (IRF) Estimated Hrs Per Day: 1.5 hours per day Agreement: Yes Rehab Potential: Fair Time/GCodes Start Time: 10:30 Stop Time: 11:45 Total Time Billed (hr/min): 75 Billed Treatment Time 1 visit-ADL 4 (65 min) FA 1 (10 min) MATILDA SUAZO Feb 18, 2020 11:59
--- NOTE | 2020-02-18 14:29 | Physical Therapy Daily Note ---
PT Daily Note-Current Subjective Pt. seated in bedside chair, agrees to therapy. States "I think I overdid it this morning, my leg is sore." No objective pain rating given and patient agrees to therapy. Mental Status Patient Orientation: Person Transfers SCALE: Activities may be completed with or without assistive devices. 3-Zqehquastd-iiuvdzu completes the activity by him/herself with no assistance from a helper. 5-Set-up or Clean-up Assistance-helper sets up or cleans up; patient completes activity. [place] assists only prior to or following the activity. 4-Supervision or Touching Assistance-helper provides verbal cues and/or touching/steadying and/or contact guard assistance as patient completes activity. Assistance may be provided throughout the activity or intermittently. 3-Partial/Moderate Assistance-helper does LESS THAN HALF the effort. [place] lifts, holds or supports trunk or limbs, but provides less than half the effort. 2-Substantial/Maximal Assistance-helper does MORE THAN HALF the effort. [place] lifts or holds trunk or limbs and provides more than half the effort. 8-Micixxfvz-spqdwd does ALL the effort. Patient does none of the effort to complete the activity. Or, the assistance of 2 or more helpers is required for the patient to complete the activity. If activity was not attempted, code reason: 7-Patient Refused. 9-Not Applicable-not attempted and the patient did not perform the activity before the current illness, exacerbation or injury. 10-Not Attempted due to Environmental Limitations-(lack of equipment, weather restraints, etc.). 88-Not Attempted due to Medical Conditions or Safety Concerns. Sit to Lying (QC): 5 Sit to Stand (QC): 5 Weight Bearing Right Lower Extremity: Right Full Weight Bearing Left Lower Extremity: Left Full Weight Bearing Gait Training Does the Patient Walk?: Yes Distance: 2 x 250 ft Walk 150 ft (QC): 5 Gait Persons Needed: 1 Gait Assistive Device: FWW 1 seated rest period needed between gait Treatments gait Assessment Current Status: Good Progress Pt. was steady with FWW, no cuing needed for walker safety this PM. He continues to have mild gait antaglia on R. Pt. returned to bed post session, cues for positioning needed and he uses UE's to assist R LE into bed. All needs met post session, call light in hand. PT Short Term Goals Short Term Goals Time Frame: Feb 20, 2020 Roll Left & Right: 6 Sit to lyin Lying to sitting on side of be: 4 Sit to stand: 4 Chair/inx-ci-mejji transfer: 4 Walk 10 feet: 4 Walk 50 feet with two turns: 4 Walk 150 feet: 4 PT [facility] Goals [place] Goals PT [facility] Goals Time Frame: Mar 05, 2020 Roll Left & Right (QC): 6 Sit to Lying (QC): 6 Lying-Sitting on Side/Bed(QC): 6 Sit to Stand (QC): 6 Chair/Awt-ov-Zuzoh Xfer(QC): 6 Toilet Transfer (QC): 6 Car Transfer (QC): 6 Does the Patient Walk: Yes Walk 10 feet (QC): 6 Walk 50ft with 2 Turns (QC): 6 Walk 150 ft (QC): 6 Walking 10ft on Uneven Surface: 6 1 Step (curb) (QC): 4 4 Steps (QC): 4 12 Steps (QC): 4 Picking up an Object (QC): 88 Does the Pt use WC or Scooter?: No Wheel 50 feet with 2 turns (QC: 9 Type: N/A Wheel 150 feet: 9 Type: N/A PT Plan Treatment/Plan Treatment Plan: Continue Plan of Care Treatment Plan: Bed Mobility, Education, Functional Activity Gareth, Functional Strength, Group Therapy, Gait, Safety, Therapeutic Exercise, Transfers Treatment Duration: Mar 05, 2020 Frequency: At least 5 of 7 days/Wk (IRF) Estimated Hrs Per Day: 1.5 hours per day Patient and/or Family Agrees t: Yes Time/GCodes Time In: 1400 Time Out: 1415 Total Billed Treatment Time: 15 Total Billed Treatment 1, GT 15' ANN YATES PT Feb 18, 2020 14:29
[2020-02-18 16:25] VITALS: BP 109/72
[2020-02-18] MEDS: FENOFIBRATE 134 MG (LOFIBRA) CAPSULE PO SCH (20:57)
[2020-02-19] MEDS: oxyCODONE/APAP 5/325MG (PERCOCET 5) TABLET PO PRN ×6 (00:01→21:08)
[2020-02-19 06:00] VITALS: BP 107/70
[2020-02-19] MEDS: DOCUSATE SODIUM 100 MG (COLACE) CAP PO SCH ×2 (08:23→21:09)
[2020-02-19] MEDS: MELOXICAM 7.5 MG (MOBIC) TABLET PO SCH ×2 (08:23→21:09)
[2020-02-19] MEDS: CARVEDILOL 12.5 MG (COREG) TABLET PO SCH ×2 (08:23→21:08)
[2020-02-19] MEDS: DULoxetine 30 MG (CYMBALTA) CAP PO SCH (08:23)
[2020-02-19] MEDS: polyethylene glycoL POWDER 17 GM (MIRALAX) PACK PO SCH ×2 (08:25→21:20)
[2020-02-19] MEDS: SENNA W/DOCUSATE (SENOKOT S) TABLET PO SCH ×2 (08:25→21:09)
[2020-02-19] MEDS: PANTOPRAZOLE 40 MG (PROTONIX) TAB PO SCH (08:25)
[2020-02-19] MEDS: ASPIRIN E.C. 81 MG (ECOTRIN) TAB PO SCH (08:25)
[2020-02-19] MEDS: GABAPENTIN 600 MG (NEURONTIN) TAB PO SCH ×3 (08:25→21:08)
--- NOTE | 2020-02-19 09:47 | Speech Therapy Daily Note ---
Speech Daily Progress Note Subjective Date Seen by Provider: Feb 19, 2020 Time Seen by Provider: 00:30 Patient demonstrated communication of all needs without cues. Objective Patient completed a series of q/a related to his discharge and what his routine will include with 95% given no cues. Assessment Assessment Current Status: Good Progress Treatment Plan Continue Plan of Care Speech Short Term Goals Short Term Goals Short Term Goals 1) Patient will complete memory tasks related to his daily needs with 90% or greater given minimal cuing. 2) Patient will complete safety awareness tasks related to his daily needs with 90% or greater given minimal cuing. 3) Patient will complete problem solving tasks related to his daily needs with 90% or greater given minimal cuing. Speech Senior Care Goals Pre K Lead Teacher Goals Patient will improve cognitive-communication necessary for safety and daily living tasks with minimal assist. Speech-Plan Patient/Family Goals Patient/Family Goals: Patient is scheduled to discharge tomorrow to his parents home. Treatment Plan Speech Therapy Treatment Plan: Continue Plan of Care Treatment Duration: Feb 29, 2020 Frequency: 5 times per week Estimated Hrs Per Day: .5 hour per day Rehab Potential: Fair Barriers to Learning: Patient's medical history Pt/Family Agrees to Plan: Yes Safety Risks/Education Teaching Recipient: Patient Teaching Methods: Demonstration, Discussion Response to Teaching: Verbalize Understanding, Return Demonstration Education Topics Provided: Continued safety upon discharge Discharge Recommendations QUALITY CODES: EXPRESSION OF IDEAS/WANTS: 4 UNDERSTANDING VERBAL CONTENT: 4 BRIEF INTERVIEW MENTAL STATUS: YES REPETITION OF 3 WORDS: 3 TEMPORAL ORIENTATION: YEAR: CORRECT, MONTH: CORRECT, DAY: CORRECT RECALL SOCK: YES, COLOR: YES, BED: YES MEMORY/RECALL ABILITY: SEASON: YES, LOCATION OF ROOM: YES, THAT HE IS IN THE HOSPITAL: YES Time Speech Therapy Time In: 09:00 Speech Therapy Time Out: 09:30 Total Billed Time: 30 Billed Treatment Time 1, MARGARET Hinds Feb 19, 2020 09:47
--- NOTE | 2020-02-19 10:15 | NUR ---
Pastoral care visit.
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
--- NOTE | 2020-02-19 10:51 | Physical Therapy Daily Note ---
PT Daily Note-Current Subjective Pt. in bedside chair, readily agrees to therapy. States he still has "soreness" in the R leg from yesterday but says "I think I just need to get going." Transfers SCALE: Activities may be completed with or without assistive devices. 6-Spwegaiyhc-yntpinm completes the activity by him/herself with no assistance from a helper. 5-Set-up or Clean-up Assistance-helper sets up or cleans up; patient completes activity. [place] assists only prior to or following the activity. 4-Supervision or Touching Assistance-helper provides verbal cues and/or touching/steadying and/or contact guard assistance as patient completes activity. Assistance may be provided throughout the activity or intermittently. 3-Partial/Moderate Assistance-helper does LESS THAN HALF the effort. [place] lifts, holds or supports trunk or limbs, but provides less than half the effort. 2-Substantial/Maximal Assistance-helper does MORE THAN HALF the effort. [place] lifts or holds trunk or limbs and provides more than half the effort. 8-Wkkxriptw-kfaqsr does ALL the effort. Patient does none of the effort to complete the activity. Or, the assistance of 2 or more helpers is required for the patient to complete the activity. If activity was not attempted, code reason: 7-Patient Refused. 9-Not Applicable-not attempted and the patient did not perform the activity before the current illness, exacerbation or injury. 10-Not Attempted due to Environmental Limitations-(lack of equipment, weather restraints, etc.). 88-Not Attempted due to Medical Conditions or Safety Concerns. Sit to Stand (QC): 6 Weight Bearing Right Lower Extremity: Right Full Weight Bearing Left Lower Extremity: Left Full Weight Bearing Gait Training Does the Patient Walk?: Yes Distance: x 250 ft, x 450 ft Walk 150 ft (QC): 5 Gait Persons Needed: 1 Gait Assistive Device: FWW good gait speed, slight antalgic gait on R Exercises Seated Therapy Exercises: Ankle pumps, Sit to stand, Long arc quads, Hamstring Curls Seated Reps: 20 Standing: Hamstring curls, Heel/toe raises, Marching, Mini squats, Side steps, Step-ups Standing Reps: 20 NuStep Minutes: 15 NuStep Workload: 5 Treatments LE exercises, gait Assessment Current Status: Good Progress Pt. is progressing very well with therapy. He was steady throughout gait and kept close to walker today without cuing. Pt. did well with LE ROM and strengthening exercises. Pt. returned to bedside chair post session with call light and all needs met, chair alarm set. PT Short Term Goals Short Term Goals Time Frame: Feb 20, 2020 Roll Left & Right: 6 Sit to lyin Lying to sitting on side of be: 4 Sit to stand: 4 Chair/dvz-qm-xuhqv transfer: 4 Walk 10 feet: 4 Walk 50 feet with two turns: 4 Walk 150 feet: 4 PT Senior Care Goals Level Vial Setter Goals PT Senior Care Goals Time Frame: Mar 05, 2020 Roll Left & Right (QC): 6 Sit to Lying (QC): 6 Lying-Sitting on Side/Bed(QC): 6 Sit to Stand (QC): 6 Chair/Rrg-ow-Rikwl Xfer(QC): 6 Toilet Transfer (QC): 6 Car Transfer (QC): 6 Does the Patient Walk: Yes Walk 10 feet (QC): 6 Walk 50ft with 2 Turns (QC): 6 Walk 150 ft (QC): 6 Walking 10ft on Uneven Surface: 6 1 Step (curb) (QC): 4 4 Steps (QC): 4 12 Steps (QC): 4 Picking up an Object (QC): 88 Does the Pt use WC or Scooter?: No Wheel 50 feet with 2 turns (QC: 9 Type: N/A Wheel 150 feet: 9 Type: N/A PT Plan Treatment/Plan Treatment Plan: Continue Plan of Care Treatment Plan: Bed Mobility, Education, Functional Activity Gareth, Functional Strength, Group Therapy, Gait, Safety, Therapeutic Exercise, Transfers Treatment Duration: Mar 05, 2020 Frequency: At least 5 of 7 days/Wk (IRF) Estimated Hrs Per Day: 1.5 hours per day Patient and/or Family Agrees t: Yes Time/GCodes Time In: 930 Time Out: 1030 Total Billed Treatment Time: 60 Total Billed Treatment 1, GT 15', Ex 45' ANN YATES PT Feb 19, 2020 10:51
--- NOTE | 2020-02-19 13:28 | Physical Therapy Daily Note ---
PT Daily Note-Current Subjective Pt. up in chair and agrees to therapy. States he still has "soreness" in the R thigh. Reports he recently took pain meds, no objective pain rating given. Transfers SCALE: Activities may be completed with or without assistive devices. 3-Pdbaevkbxe-cqzmhak completes the activity by him/herself with no assistance from a helper. 5-Set-up or Clean-up Assistance-helper sets up or cleans up; patient completes activity. [place] assists only prior to or following the activity. 4-Supervision or Touching Assistance-helper provides verbal cues and/or touching/steadying and/or contact guard assistance as patient completes activity. Assistance may be provided throughout the activity or intermittently. 3-Partial/Moderate Assistance-helper does LESS THAN HALF the effort. [place] lifts, holds or supports trunk or limbs, but provides less than half the effort. 2-Substantial/Maximal Assistance-helper does MORE THAN HALF the effort. [place] lifts or holds trunk or limbs and provides more than half the effort. 4-Xyeqgksgq-utqsay does ALL the effort. Patient does none of the effort to complete the activity. Or, the assistance of 2 or more helpers is required for the patient to complete the activity. If activity was not attempted, code reason: 7-Patient Refused. 9-Not Applicable-not attempted and the patient did not perform the activity before the current illness, exacerbation or injury. 10-Not Attempted due to Environmental Limitations-(lack of equipment, weather restraints, etc.). 88-Not Attempted due to Medical Conditions or Safety Concerns. Sit to Stand (QC): 5 Weight Bearing Right Lower Extremity: Right Full Weight Bearing Left Lower Extremity: Left Full Weight Bearing Gait Training Does the Patient Walk?: Yes Distance: x 450 ft, x 100 ft Walk 150 ft (QC): 5 Gait Persons Needed: 1 Gait Assistive Device: FWW steady and good gait speed; 1 cue needed to keep walker close to self Exercises Seated Therapy Exercises: Ankle pumps, Sit to stand (10 reps), Long arc quads Seated Reps: 20 Treatments LE exercise, gait Assessment Current Status: Good Progress Pt. continues to be SBA with gait but is nearing independence with use of FWW. Pt. returned to bedside chair post session with call light and all needs met, chair alarm set. PT Short Term Goals Short Term Goals Time Frame: Feb 20, 2020 Roll Left & Right: 6 Sit to lyin Lying to sitting on side of be: 4 Sit to stand: 4 Chair/reh-zs-fymnu transfer: 4 Walk 10 feet: 4 Walk 50 feet with two turns: 4 Walk 150 feet: 4 PT Alf Goals Alf Goals PT Travel Sales Consultant Goals Time Frame: Mar 05, 2020 Roll Left & Right (QC): 6 Sit to Lying (QC): 6 Lying-Sitting on Side/Bed(QC): 6 Sit to Stand (QC): 6 Chair/Oxy-xj-Wtfma Xfer(QC): 6 Toilet Transfer (QC): 6 Car Transfer (QC): 6 Does the Patient Walk: Yes Walk 10 feet (QC): 6 Walk 50ft with 2 Turns (QC): 6 Walk 150 ft (QC): 6 Walking 10ft on Uneven Surface: 6 1 Step (curb) (QC): 4 4 Steps (QC): 4 12 Steps (QC): 4 Picking up an Object (QC): 88 Does the Pt use WC or Scooter?: No Wheel 50 feet with 2 turns (QC: 9 Type: N/A Wheel 150 feet: 9 Type: N/A PT Plan Treatment/Plan Treatment Plan: Continue Plan of Care Treatment Plan: Bed Mobility, Education, Functional Activity Gareth, Functional Strength, Group Therapy, Gait, Safety, Therapeutic Exercise, Transfers Treatment Duration: Mar 05, 2020 Frequency: At least 5 of 7 days/Wk (IRF) Estimated Hrs Per Day: 1.5 hours per day Patient and/or Family Agrees t: Yes Time/GCodes Time In: 1300 Time Out: 1315 Total Billed Treatment Time: 15 Total Billed Treatment 1, GT 10', (Ex 5') ANN YATES PT Feb 19, 2020 13:27
--- NOTE | 2020-02-19 13:38 | Occupational Ther Daily Note ---
OT Current Status-Daily Note Subjective Pt sitting in chair, agrees to therapy. Reports pain in back and right hip. ADL-Treatment Pt declined shower this morning, but would like to complete grooming tasks. Sit to stand with supervision. Gait to restroom with FWW. Pt stood at sink to shave with set up and increased time. Pt reports fatigue and back pain, so requests to sit after completion. Pt then stood at sink to brush teeth with modified independence. Washed upper body and applied deodorant while standing at sink. Pt doffed/donned shirt with set up. Pt declined to change pants at this time. Pt practiced using AE for socks. Doffed socks without assist using dressing stick. Donned socks with verbal cues using sock aid. Pt requires increased time for ADL tasks. Therapy Code Descriptions/Definitions Functional [place] Measure: 0=Not Assessed/NA 4=Minimal Assistance 1=Total Assistance 5=Supervision or Setup 2=Maximal Assistance 6=Modified [place] 3=Moderate Assistance 7=Complete IndependenceSCALE: Activities may be completed with or without assistive devices. 7-Rcrhspxdlj-dhwyxgk completes the activity by him/herself with no assistance from a helper. 5-Set-up or Clean-up Assistance-helper sets up or cleans up; patient completes activity. [place] assists only prior to or following the activity. 4-Supervision or Touching Assistance-helper provides verbal cues and/or touching/steadying and/or contact guard assistance as patient completes activity. Assistance may be provided throughout the activity or intermittently. 3-Partial/Moderate Assistance-helper does LESS THAN HALF the effort. [place] lif ts, holds or supports trunk or limbs, but provides less than half the effort. 2-Substantial/Maximal Assistance-helper does MORE THAN HALF the effort. [place] lifts or holds trunk or limbs and provides more than half the effort. 7-Gnmiavkjw-mgdhid does ALL the effort. Patient does none of the effort to complete the activity. Or, the assistance of 2 or more helpers is required for the patient to complete the activity. If activity was not attempted, code reason: 7-Patient Refused. 9-Not Applicable-not attempted and the patient did not perform the activity before the current illness, exacerbation or injury. 10-Not Attempted due to Environmental Limitations-(lack of equipment, weather restraints, etc.). 88-Not Attempted due to Medical Conditions or Safety Concerns. Oral Hygiene (QC): 6 Upper Body Dressing (QC): 5 On/Off Footwear: 4 Other Treatment Pt performed gait to therapy gym with FWW. Arm bike [id number] to increase o verall strength and activity tolerance needed for functional task completion. Pt performed task with steady pace and one rest break. Graded clothespin activity with bilateral hands to increase strength and coordination/manipulation skills. Pt returned to room, sitting in chair with needs met and chair alarm in place after session. Education OT Patient Education: Modified ADL techniques Teaching Recipient: Patient Teaching Methods: Discussion Response to Teaching: Verbalize Understanding, Reinforcement Needed OT Prison Goals Big Data Developer Goals Time Frame: Mar 05, 2020 Eating (QC): 6 (met) Oral Hygiene (QC): 6 (met) Toileting Hygiene (QC): 6 Shower/Bathe Self (QC): 6 (met) Upper Body Dressing (QC): 6 Lower Body Dressing (QC): 6 On/Off Footwear (QC): 6 Additional Goals: 1-Demonstrate ADL Tasks, 2-Verbalize Understanding, 3- ImproveStrength/Gareth 1=Demonstrate adherence to instructed precautions during ADL tasks. 2=Patient will verbalize/demonstrate understanding of assistive devices/modifications for ADL. 3=Patient will improve strength/tolerance for activity to enable patient to perform ADL's. OT Education/Plan Discharge Recommendations Plan/Recommendations: Continue POC Treatment Plan/Plan of Care Patient would benefit from OT for education, treatment and training to promote independence in ADL's, mobility, safety and/or upper extremity function for ADL's. Plan of Care: ADL Retraining, Functional Mobility, Group Exercise/Act as Ind, UE Funct Exercise/Act Treatment Duration: Mar 05, 2020 Frequency: At least 5 of 7 days/Wk (IRF) Estimated Hrs Per Day: 1.5 hours per day Agreement: Yes Rehab Potential: Fair Time/GCodes Start Time: 10:45 Stop Time: 12:00 Total Time Billed (hr/min): 75 Billed Treatment Time 1 visit, ADLx3(45minutes), EXx2(30minutes) SUSANA QUIÑONEZ OT Feb 19, 2020 13:38
[2020-02-19 16:11] VITALS: BP 106/72
[2020-02-19] MEDS: FENOFIBRATE 134 MG (LOFIBRA) CAPSULE PO SCH (21:09)
[2020-02-20] MEDS: oxyCODONE/APAP 5/325MG (PERCOCET 5) TABLET PO PRN ×6 (01:10→21:15)
[2020-02-20 05:17] VITALS: BP 106/65
[2020-02-20] MEDS: DOCUSATE SODIUM 100 MG (COLACE) CAP PO SCH ×2 (08:42→21:04)
[2020-02-20] MEDS: MELOXICAM 7.5 MG (MOBIC) TABLET PO SCH ×2 (08:42→21:04)
[2020-02-20] MEDS: SENNA W/DOCUSATE (SENOKOT S) TABLET PO SCH ×2 (08:42→21:04)
[2020-02-20] MEDS: PANTOPRAZOLE 40 MG (PROTONIX) TAB PO SCH (08:42)
[2020-02-20] MEDS: polyethylene glycoL POWDER 17 GM (MIRALAX) PACK PO SCH ×2 (08:42→21:16)
[2020-02-20] MEDS: DULoxetine 30 MG (CYMBALTA) CAP PO SCH (08:42)
[2020-02-20] MEDS: GABAPENTIN 600 MG (NEURONTIN) TAB PO SCH ×3 (08:42→21:04)
[2020-02-20] MEDS: ASPIRIN E.C. 81 MG (ECOTRIN) TAB PO SCH (08:42)
[2020-02-20] MEDS: CARVEDILOL 12.5 MG (COREG) TABLET PO SCH ×2 (08:42→21:04)
--- NOTE | 2020-02-20 09:29 | Speech Therapy Daily Note ---
Speech Daily Progress Note Subjective Date Seen by Provider: Feb 20, 2020 Time Seen by Provider: 00:30 Patient stated he was waiting on his pain pill, however he participated well with ST session. Objective Patient completed a series of safety awareness tasks related to his daily needs with 100% given no cuing. Assessment Assessment Current Status: Good Progress Treatment Plan Continue Plan of Care Speech Short Term Goals Short Term Goals Short Term Goals 1) Patient will complete memory tasks related to his daily needs with 90% or greater given minimal cuing. 2) Patient will complete safety awareness tasks related to his daily needs with 90% or greater given minimal cuing. 3) Patient will complete problem solving tasks related to his daily needs with 90% or greater given minimal cuing. Speech Overcoiler Goals Overcoiler Goals Patient will improve cognitive-communication necessary for safety and daily living tasks with minimal assist. Speech-Plan Patient/Family Goals Patient/Family Goals: Patient will discharge to his parents home where he will receive support as needed. Treatment Plan Speech Therapy Treatment Plan: Continue Plan of Care Treatment Duration: Feb 29, 2020 Frequency: 5 times per week Estimated Hrs Per Day: .5 hour per day Rehab Potential: Fair Barriers to Learning: Patient's medical history Pt/Family Agrees to Plan: Yes Safety Risks/Education Teaching Recipient: Patient Teaching Methods: Demonstration, Discussion Response to Teaching: Verbalize Understanding, Return Demonstration Education Topics Provided: Continued safety upon his return home Time Speech Therapy Time In: 09:00 Speech Therapy Time Out: 09:30 Total Billed Time: 30 Billed Treatment Time 1, MARGARET Hinds Feb 20, 2020 09:29
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
--- NOTE | 2020-02-20 11:14 | Occupational Ther Daily Note ---
OT Current Status-Daily Note Subjective Pt alert, sitting in w/c. Pt agrees to therapy. No c/o pain at this time. Mental Status/Objective Patient Orientation: Person, Place, Time ADL-Treatment Pt agrees to shower. Pt has clothing on already, doffed clothing prior to getting out of recliner by self. Using dressing stick to doff socks. Pt transported clothing into bathroom using FWW. SBA for safety when transferring into shower using grabbars. Pt completed shower using shower bench, grabbars and hand held shower (supervision in standing for safety). Supervision for lower body dressing in stance for safety. Pt able to thread feet into pants/underwear then used sock aide to don socks. Independent with upper body dressing. Pt stood at sink to complete grooming and oral care, independently. Pt demonstrates ability to complete bathing and lower body dressing though for safety concerns QC pt at supervision. After session, pt sitting in recliner with call light/phone in reach. All needs met in room. Therapy Code Descriptions/Definitions Functional [place] Measure: 0=Not Assessed/NA 4=Minimal Assistance 1=Total Assistance 5=Supervision or Setup 2=Maximal Assistance 6=Modified [place] 3=Moderate Assistance 7=Complete IndependenceSCALE: Activities may be completed with or without assistive devices. 8-Lglkxlziqr-bfpjywz completes the activity by him/herself with no assistance from a helper. 5-Set-up or Clean-up Assistance-helper sets up or cleans up; patient completes activity. [place] assists only prior to or following the activity. 4-Supervision or Touching Assistance-helper provides verbal cues and/or touching/steadying and/or contact guard assistance as patient completes activity. Assistance may be provided throughout the activity or intermittently. 3-Partial/Moderate Assistance-helper does LESS THAN HALF the effort. [place] lifts, holds or supports trunk or limbs, but provides less than half the effort. 2-Substantial/Maximal Assistance-helper does MORE THAN HALF the effort. [place] lifts or holds trunk or limbs and provides more than half the effort. 1-Fadlcyegq-xwcwvu does ALL the effort. Patient does none of the effort to complete the activity. Or, the assistance of 2 or more helpers is required for the patient to complete the activity. If activity was not attempted, code reason: 7-Patient Refused. 9-Not Applicable-not attempted and the patient did not perform the activity before the current illness, exacerbation or injury. 10-Not Attempted due to Environmental Limitations-(lack of equipment, weather restraints, etc.). 88-Not Attempted due to Medical Conditions or Safety Concerns. Eating (QC): 6 (Pt has demonstrated ability to complete own set up and use regular utensils.) Oral Hygiene (QC): 6 Shower/Bathe Self (QC): 4 Upper Body Dressing (QC): 6 Lower Body Dressing (QC): 4 On/Off Footwear: 5 Toileting Hygiene (QC): 4 Toilet Transfer (QC): 4 OT Mixer And Scaler Goals Prison Goals Time Frame: Mar 05, 2020 Eating (QC): 6 (met) Oral Hygiene (QC): 6 (met) Toileting Hygiene (QC): 6 Shower/Bathe Self (QC): 6 Upper Body Dressing (QC): 6 Lower Body Dressing (QC): 6 On/Off Footwear (QC): 6 Additional Goals: 1-Demonstrate ADL Tasks, 2-Verbalize Understanding, 3-ImproveStrength/Gareth 1=Demonstrate adherence to instructed precautions during ADL tasks. 2=Patient will verbalize/demonstrate understanding of assistive devices/modifications for ADL. 3=Patient will improve strength/tolerance for activity to enable patient to perform ADL's. OT Education/Plan Problem List/Assessment Assessment: Decreased Activ Tolerance, Impaired Self-Care Skills Discharge Recommendations Plan/Recommendations: Continue POC Treatment Plan/Plan of Care Patient would benefit from OT for education, treatment and training to promote independence in ADL's, mobility, safety and/or upper extremity function for ADL's. Plan of Care: ADL Retraining, Functional Mobility, Group Exercise/Act as Ind, UE Funct Exercise/Act Treatment Duration: Mar 05, 2020 Frequency: At least 5 of 7 days/Wk (IRF) Estimated Hrs Per Day: 1.5 hours per day Agreement: Yes Rehab Potential: Fair Time/GCodes Start Time: 09:30 Stop Time: 10:30 Total Time Billed (hr/min): 60 Billed Treatment Time 1 visit-ADL 4 (60 min) MATILDA SUAZO Feb 20, 2020 11:14
--- NOTE | 2020-02-20 11:54 | Physical Therapy Daily Note ---
PT Daily Note-Current Subjective Pt ready for PT. Pt rates pain 8.25/10 prior to and after PT in R hip. Transfers SCALE: Activities may be completed with or without assistive devices. 6-Ikqyjrwkfy-lhfrssk completes the activity by him/herself with no assistance from a helper. 5-Set-up or Clean-up Assistance-helper sets up or cleans up; patient completes activity. [place] assists only prior to or following the activity. 4-Supervision or Touching Assistance-helper provides verbal cues and/or touching/steadying and/or contact guard assistance as patient completes activity. Assistance may be provided throughout the activity or intermittently. 3-Partial/Moderate Assistance-helper does LESS THAN HALF the effort. [place] lifts, holds or supports trunk or limbs, but provides less than half the effort. 2-Substantial/Maximal Assistance-helper does MORE THAN HALF the effort. [place] lifts or holds trunk or limbs and provides more than half the effort. 8-Zhznvhqln-gzndnu does ALL the effort. Patient does none of the effort to complete the activity. Or, the assistance of 2 or more helpers is required for the patient to complete the activity. If activity was not attempted, code reason: 7-Patient Refused. 9-Not Applicable-not attempted and the patient did not perform the activity before the current illness, exacerbation or injury. 10-Not Attempted due to Environmental Limitations-(lack of equipment, weather restraints, etc.). 88-Not Attempted due to Medical Conditions or Safety Concerns. Transfers all levels mod (I). Pt manually lifts (R) LE onto plinth. Weight Bearing Right Lower Extremity: Right Full Weight Bearing Left Lower Extremity: Left Full Weight Bearing Gait Training Gait Assistive Device: FWW Pt amb with FWW and SBA 1 x 400ft, 1 x 1500ft Stair Training Stair Training: Handrails/: 2 handrails #of Steps: 12 Stairs: Pattern: Step to Pt CGA-SBA, vc's for sequence initally. Exercises Supine Ex: Ankle pumps, Quad Set, Glut sets, Heel Slides, Short Arc Quads Supine Reps: 20 Seated Therapy Exercises: Ankle pumps, Long arc quads Seated Reps: 20 NuStep Minutes: 20 NuStep Workload: 3 Neuromuscular Pt seen for gait training, transfer training, stair training, LE strengthening and Nu-step Assessment Current Status: Good Progress Pt mod (I) with all mobility, good endurance, good and stable balance throughout treatment. Pt in recliner with call light and all needs met post therapy session PT Short Term Goals Short Term Goals Time Frame: Feb 20, 2020 Roll Left & Right: 6 Sit to lyin Lying to sitting on side of be: 4 Sit to stand: 4 Chair/ioo-ln-mfvps transfer: 4 Walk 10 feet: 4 Walk 50 feet with two turns: 4 Walk 150 feet: 4 PT Clinical Nurse Manager Goals Fpc Goals PT Clinical Nurse Manager Goals Time Frame: Mar 05, 2020 Roll Left & Right (QC): 6 Sit to Lying (QC): 6 Lying-Sitting on Side/Bed(QC): 6 Sit to Stand (QC): 6 Chair/Hgr-gv-Zqymp Xfer(QC): 6 Toilet Transfer (QC): 6 Car Transfer (QC): 6 Does the Patient Walk: Yes Walk 10 feet (QC): 6 Walk 50ft with 2 Turns (QC): 6 Walk 150 ft (QC): 6 Walking 10ft on Uneven Surface: 6 1 Step (curb) (QC): 4 4 Steps (QC): 4 12 Steps (QC): 4 Picking up an Object (QC): 88 Does the Pt use WC or Scooter?: No Wheel 50 feet with 2 turns (QC: 9 Type: N/A Wheel 150 feet: 9 Type: N/A PT Plan Treatment/Plan Treatment Plan: Continue Plan of Care Treatment Plan: Bed Mobility, Education, Functional Activity Gareth, Functional Strength, Group Therapy, Gait, Safety, Therapeutic Exercise, Transfers Treatment Duration: Mar 05, 2020 Frequency: At least 5 of 7 days/Wk (IRF) Estimated Hrs Per Day: 1.5 hours per day Patient and/or Family Agrees t: Yes Time/GCodes Time In: 1030 Time Out: 1130 Total Billed Treatment Time: 60 Total Billed Treatment 1, Ex x 30', Gt x 30' DEMETRA KNOWLES CPTA Feb 20, 2020 11:54
--- NOTE | 2020-02-20 13:26 | Occupational Ther Daily Note ---
OT Current Status-Daily Note Subjective Pt alert, sitting in recliner. Pt agrees to therapy. No c/o pain, c/o fatigue. Mental Status/Objective Patient Orientation: Person, Place, Time, Situation ADL-Treatment Therapy Code Descriptions/Definitions Functional [place] Measure: 0=Not Assessed/NA 4=Minimal Assistance 1=Total Assistance 5=Supervision or Setup 2=Maximal Assistance 6=Modified [place] 3=Moderate Assistance 7=Complete IndependenceSCALE: Activities may be completed with or without assistive devices. 9-Mbdltopabd-qmseysz completes the activity by him/herself with no assistance from a helper. 5-Set-up or Clean-up Assistance-helper sets up or cleans up; patient completes activity. [place] assists only prior to or following the activity. 4-Supervision or Touching Assistance-helper provides verbal cues and/or touchi ng/steadying and/or contact guard assistance as patient completes activity. Assistance may be provided throughout the activity or intermittently. 3-Partial/Moderate Assistance-helper does LESS THAN HALF the effort. [place] lifts, holds or supports trunk or limbs, but provides less than half the effort. 2-Substantial/Maximal Assistance-helper does MORE THAN HALF the effort. [place] lifts or holds trunk or limbs and provides more than half the effort. 1-Gierfbmvf-rjvtqc does ALL the effort. Patient does none of the effort to complete the activity. Or, the assistance of 2 or more helpers is required for the patient to complete the activity. If activity was not attempted, code reason: 7-Patient Refused. 9-Not Applicable-not attempted and the patient did not perform the activity before the current illness, exacerbation or injury. 10-Not Attempted due to Environmental Limitations-(lack of equipment, weather restraints, etc.). 88-Not Attempted due to Medical Conditions or Safety Concerns. Other Treatment Pt ambulated with FWW to therapy gym. Pt leaves FWW out to side for sit <--> stand transfers, requires verbal cues to position correctly. Completed arm bike for 10 min at 25 velazquez resistance to increase B UE strength and activity to lerance for daily functional tasks. Ambulated around [facility] with FWW. PT took over care of pt from OT. All needs met in room. OT Legal Instructor Goals Legal Instructor Goals Time Frame: Mar 05, 2020 Eating (QC): 6 (met) Oral Hygiene (QC): 6 (met) Toileting Hygiene (QC): 6 Shower/Bathe Self (QC): 6 Upper Body Dressing (QC): 6 Lower Body Dressing (QC): 6 On/Off Footwear (QC): 6 Additional Goals: 1-Demonstrate ADL Tasks, 2-Verbalize Understanding, 3- ImproveStrength/Gareth 1=Demonstrate adherence to instructed precautions during ADL tasks. 2=Patient will verbalize/demonstrate understanding of assistive devices/modifications for ADL. 3=Patient will improve strength/tolerance for activity to enable patient to perform ADL's. OT Education/Plan Problem List/Assessment Assessment: Decreased Activ Tolerance, Decreased UE Strength Discharge Recommendations Plan/Recommendations: Continue POC Treatment Plan/Plan of Care Patient would benefit from OT for education, treatment and training to promote independence in ADL's, mobility, safety and/or upper extremity function for ADL's. Plan of Care: ADL Retraining, Functional Mobility, Group Exercise/Act as Ind, UE Funct Exercise/Act Treatment Duration: Mar 05, 2020 Frequency: At least 5 of 7 days/Wk (IRF) Estimated Hrs Per Day: 1.5 hours per day Agreement: Yes Rehab Potential: Fair Time/GCodes Start Time: 13:00 Stop Time: 13:15 Total Time Billed (hr/min): 15 Billed Treatment Time 1 visit-EX 1 (15 min) MATILDA SUAZO Feb 20, 2020 13:26
--- NOTE | 2020-02-20 13:46 | NUR ---
Pt asked when he will be discharged. I advised him the team meeting discussed Tuesday as a discharge date so that therapy can work more with him on his strength and balance.
--- NOTE | 2020-02-20 13:51 | Physical Therapy Daily Note ---
PT Daily Note-Current Subjective Pt c/o "I am tired." Pt c/o "my leg is swelled". Pt did not complain of pain. Mental Status Patient Orientation: Person, Place, Situation Transfers SCALE: Activities may be completed with or without assistive devices. 5-Ymoviyaahj-nlkgugj completes the activity by him/herself with no assistance from a helper. 5-Set-up or Clean-up Assistance-helper sets up or cleans up; patient completes activity. [place] assists only prior to or following the activity. 4-Supervision or Touching Assistance-helper provides verbal cues and/or touching/steadying and/or contact guard assistance as patient completes activity. Assistance may be provided throughout the activity or intermittently. 3-Partial/Moderate Assistance-helper does LESS THAN HALF the effort. [place] lifts, holds or supports trunk or limbs, but provides less than half the effort. 2-Substantial/Maximal Assistance-helper does MORE THAN HALF the effort. [place] lifts or holds trunk or limbs and provides more than half the effort. 2-Vkuwpmazg-wdqleq does ALL the effort. Patient does none of the effort to complete the activity. Or, the assistance of 2 or more helpers is required for the patient to complete the activity. If activity was not attempted, code reason: 7-Patient Refused. 9-Not Applicable-not attempted and the patient did not perform the activity before the current illness, exacerbation or injury. 10-Not Attempted due to Environmental Limitations-(lack of equipment, weather restraints, etc.). 88-Not Attempted due to Medical Conditions or Safety Concerns. Weight Bearing Right Lower Extremity: Right Full Weight Bearing Left Lower Extremity: Left Full Weight Bearing Gait Training Gait Assistive Device: FWW Pt amb with FWW and SBA x 450ft Exercises Seated Therapy Exercises: Ankle pumps, Long arc quads, Glut set Seated Reps: 20 NuStep Minutes: 6 NuStep Workload: 3 Treatments Pt seen for LE strengthening, gait training and Nu-step Assessment Current Status: Good Progress Pt [place] above well. Pt progressing appropriately. Pt mod (I) with all mobility today. Pt back to bed with call light and all needs met post therapy. PT Short Term Goals Short Term Goals Time Frame: Feb 20, 2020 Roll Left & Right: 6 Sit to lyin Lying to sitting on side of be: 4 Sit to stand: 4 Chair/ggg-jz-lktdl transfer: 4 Walk 10 feet: 4 Walk 50 feet with two turns: 4 Walk 150 feet: 4 PT Correction Goals Correction Goals PT Tank Operator Goals Time Frame: Mar 05, 2020 Roll Left & Right (QC): 6 Sit to Lying (QC): 6 Lying-Sitting on Side/Bed(QC): 6 Sit to Stand (QC): 6 Chair/Rmk-lk-Pfxph Xfer(QC): 6 Toilet Transfer (QC): 6 Car Transfer (QC): 6 Does the Patient Walk: Yes Walk 10 feet (QC): 6 Walk 50ft with 2 Turns (QC): 6 Walk 150 ft (QC): 6 Walking 10ft on Uneven Surface: 6 1 Step (curb) (QC): 4 4 Steps (QC): 4 12 Steps (QC): 4 Picking up an Object (QC): 88 Does the Pt use WC or Scooter?: No Wheel 50 feet with 2 turns (QC: 9 Type: N/A Wheel 150 feet: 9 Type: N/A PT Plan Treatment/Plan Treatment Plan: Continue Plan of Care Treatment Plan: Bed Mobility, Education, Functional Activity Gareth, Functional Strength, Group Therapy, Gait, Safety, Therapeutic Exercise, Transfers Treatment Duration: Mar 05, 2020 Frequency: At least 5 of 7 days/Wk (IRF) Estimated Hrs Per Day: 1.5 hours per day Patient and/or Family Agrees t: Yes Time/GCodes Time In: 120 Time Out: 145 Total Billed Treatment Time: 25 Total Billed Treatment 1, ther ex 13', Gait 12' DEMETRA KNOWLES CPTDarius Feb 20, 2020 13:51
[2020-02-20 17:34] VITALS: BP 134/79
[2020-02-20 21:00] VITALS: BP 128/83
[2020-02-20] MEDS: FENOFIBRATE 134 MG (LOFIBRA) CAPSULE PO SCH (21:04)
--- NOTE | 2020-02-20 21:46 | NUR ---
PATIENT REQUESTED PERCOCET 2 TABS AT 2100. PER JAN CHECK, THIS WOULD PUT PATIENT OVER THE DAILY LIMIT OF APAP. DR LUJAN NOTIFIED, ORDER RECEIVED TO GO AHEAD AND GIVE PERCOCET AT 2100.
[2020-02-21] MEDS: oxyCODONE/APAP 5/325MG (PERCOCET 5) TABLET PO PRN ×6 (01:07→21:07)
[2020-02-21 05:45] VITALS: BP 124/79
[2020-02-21] MEDS: CARVEDILOL 12.5 MG (COREG) TABLET PO SCH ×2 (08:06→21:08)
[2020-02-21] MEDS: GABAPENTIN 600 MG (NEURONTIN) TAB PO SCH ×3 (08:06→21:07)
[2020-02-21] MEDS: MELOXICAM 7.5 MG (MOBIC) TABLET PO SCH ×2 (08:06→21:07)
[2020-02-21] MEDS: PANTOPRAZOLE 40 MG (PROTONIX) TAB PO SCH (08:06)
[2020-02-21] MEDS: ASPIRIN E.C. 81 MG (ECOTRIN) TAB PO SCH (08:07)
[2020-02-21] MEDS: DOCUSATE SODIUM 100 MG (COLACE) CAP PO SCH ×2 (08:07→21:07)
[2020-02-21] MEDS: DULoxetine 30 MG (CYMBALTA) CAP PO SCH (08:07)
[2020-02-21] MEDS: SENNA W/DOCUSATE (SENOKOT S) TABLET PO SCH ×2 (08:07→21:08)
[2020-02-21] MEDS: polyethylene glycoL POWDER 17 GM (MIRALAX) PACK PO SCH ×2 (08:10→21:11)
--- NOTE | 2020-02-21 09:31 | Physical Therapy Daily Note ---
PT Daily Note-Current Subjective Pt reports stiffness in the (R) hip, but denies pain. Mental Status Patient Orientation: Person, Place, Time, Situation Transfers SCALE: Activities may be completed with or without assistive devices. 8-Eusbnwsajj-ttqamcj completes the activity by him/herself with no assistance from a helper. 5-Set-up or Clean-up Assistance-helper sets up or cleans up; patient completes activity. [place] assists only prior to or following the activity. 4-Supervision or Touching Assistance-helper provides verbal cues and/or touching/steadying and/or contact guard assistance as patient completes activity. Assistance may be provided throughout the activity or intermittently. 3-Partial/Moderate Assistance-helper does LESS THAN HALF the effort. [place] lifts, holds or supports trunk or limbs, but provides less than half the effort. 2-Substantial/Maximal Assistance-helper does MORE THAN HALF the effort. [place] lifts or holds trunk or limbs and provides more than half the effort. 4-Vdxidupkq-orlnka does ALL the effort. Patient does none of the effort to complete the activity. Or, the assistance of 2 or more helpers is required for the patient to complete the activity. If activity was not attempted, code reason: 7-Patient Refused. 9-Not Applicable-not attempted and the patient did not perform the activity before the current illness, exacerbation or injury. 10-Not Attempted due to Environmental Limitations-(lack of equipment, weather restraints, etc.). 88-Not Attempted due to Medical Conditions or Safety Concerns. Roll Left & Right (QC): 6 Sit to Lying (QC): 6 Lying to Sitting/Side of Bed(Q: 6 Sit to Stand (QC): 6 Chair/Sel-ai-Bytzy Xfer(QC): 6 Toilet Transfer (QC): 5 Car Transfer (QC): 6 Weight Bearing Right Lower Extremity: Right Full Weight Bearing Left Lower Extremity: Left Full Weight Bearing Gait Training Does the Patient Walk?: Yes Distance: 1200ft x2 Walk 10 feet (QC): 6 Walk 50 ft with 2 Turns(QC): 6 Walk 150 ft (QC): 6 Walking 10ft/uneven surface-QC: 6 Gait Persons Needed: 1 Gait Assistive Device: FWW Wheelchair Training Does the Pt Use a Wheelchair?: No Stair Training Stair Training: Handrails/: 1 handrail #of Steps: 12 1 Step (curb) (QC): 6 4 Steps (QC): 6 12 Steps (QC): 6 Stairs: Pattern: Step to Balance Picking up an Object (QC): 5 Exercises Seated Therapy Exercises: LE Protocol Seated Reps: [address] Ex=Flex, Abd, Ext, Marching, Mini squats, Sit to Stand, Side steps Standing Reps: 30 NuStep Minutes: 20 NuStep Workload: 5 Assessment Current Status: Excellent Progress Pt is performing all transfers and mobility with good safety awareness and without eliciting (R) LE pain. He is ambulating with a mild limp and is aware of the limp but it is due to the (R) LE neuropathy. PT Short Term Goals Short Term Goals Time Frame: Feb 20, 2020 Roll Left & Right: 6 Sit to lyin Lying to sitting on side of be: 4 Sit to stand: 4 Chair/aoj-id-lglce transfer: 4 Walk 10 feet: 4 Walk 50 feet with two turns: 4 Walk 150 feet: 4 PT Client Evaluator Goals Snf Goals PT Snf Goals Time Frame: Mar 05, 2020 Roll Left & Right (QC): 6 Sit to Lying (QC): 6 Lying-Sitting on Side/Bed(QC): 6 Sit to Stand (QC): 6 Chair/Gcf-em-Uwrjf Xfer(QC): 6 Toilet Transfer (QC): 6 Car Transfer (QC): 6 Does the Patient Walk: Yes Walk 10 feet (QC): 6 Walk 50ft with 2 Turns (QC): 6 Walk 150 ft (QC): 6 Walking 10ft on Uneven Surface: 6 1 Step (curb) (QC): 4 4 Steps (QC): 4 12 Steps (QC): 4 Picking up an Object (QC): 88 Does the Pt use WC or Scooter?: No Wheel 50 feet with 2 turns (QC: 9 Type: N/A Wheel 150 feet: 9 Type: N/A PT Plan Treatment/Plan Treatment Plan: Continue Plan of Care Treatment Plan: Bed Mobility, Education, Functional Activity Gareth, Functional Strength, Group Therapy, Gait, Safety, Therapeutic Exercise, Transfers Treatment Duration: Mar 05, 2020 Frequency: At least 5 of 7 days/Wk (IRF) Estimated Hrs Per Day: 1.5 hours per day Patient and/or Family Agrees t: Yes Time/GCodes Time In: 0820 Time Out: 919 Total Billed Treatment Time: 60 Total Billed Treatment 1, gt x2 (25'), ex x2 (35') EMMA GARVIN PT Feb 21, 2020 09:31
--- NOTE | 2020-02-21 10:41 | Occupational Ther Daily Note ---
OT Current Status-Daily Note Subjective Pt alert, sitting in recliner. Pt agrees to therapy. Pt states that his hip pain is nonexistent though he continues to have back pain. Mental Status/Objective Patient Orientation: Person, Place, Time, Situation ADL-Treatment Therapy Code Descriptions/Definitions Functional [place] Measure: 0=Not Assessed/NA 4=Minimal Assistance 1=Total Assistance 5=Supervision or Setup 2=Maximal Assistance 6=Modified [place] 3=Moderate Assistance 7=Complete IndependenceSCALE: Activities may be completed with or without assistive devices. 8-Kozfzstmse-awwrvug completes the activity by him/herself with no assistance from a helper. 5-Set-up or Clean-up Assistance-helper sets up or cleans up; patient completes activity. [place] assists only prior to or following the activity. 4-Supervision or Touching Assistance-helper provides verbal cues and/or touching/steadying and/or contact guard assistance as patient completes activi ty. Assistance may be provided throughout the activity or intermittently. 3-Partial/Moderate Assistance-helper does LESS THAN HALF the effort. [place] lifts, holds or supports trunk or limbs, but provides less than half the effort. 2-Substantial/Maximal Assistance-helper does MORE THAN HALF the effort. [place] lifts or holds trunk or limbs and provides more than half the effort. 5-Yaelsczep-miveyp does ALL the effort. Patient does none of the effort to complete the activity. Or, the assistance of 2 or more helpers is required for the patient to complete the activity. If activity was not attempted, code reason: 7-Patient Refused. 9-Not Applicable-not attempted and the patient did not perform the activity before the current illness, exacerbation or injury. 10-Not Attempted due to Environmental Limitations-(lack of equipment, weather restraints, etc.). 88-Not Attempted due to Medical Conditions or Safety Concerns. Eating (QC): 6 (Pt demonstrates ability to complete own meal set up and use regular utensils to eat.) Oral Hygiene (QC): 6 (Standing at sink, pt completes by self.) Bathing Location: L Arm, R Arm, L Upper Leg, R Upper Leg, L Lower Leg (including foot), R Lower Leg (including foot), Chest, Abdomen, Buttocks, Perineal Area Shower/Bathe Self (QC): 6 (Safety concerns. Pt completed own shower using shower bench, grabbar and hand held shower.) Upper Body Dressing (QC): 6 (Pt able to retrieve clothing and don/doff by self.) Lower Body Dressing (QC): 6 (Safety concerns. Pt retrieves own clothing then dons pants/underwear by self. Uses sock aide to don and doffs without AE.) On/Off Footwear: 6 Toileting Hygiene (QC): 6 (Pt reports that he has been getting up and going to bathroom on his own.) Toilet Transfer (QC): 6 (Safety concerns. Pt reports that he has been getting up and going to bathroom on his own.) OT Lettuce Cutter Goals Skilled Nursing Goals Time Frame: Mar 05, 2020 Eating (QC): 6 (met) Oral Hygiene (QC): 6 (met) Toileting Hygiene (QC): 6 (met) Shower/Bathe Self (QC): 6 (met) Upper Body Dressing (QC): 6 (met) Lower Body Dressing (QC): 6 (met) On/Off Footwear (QC): 6 (met) Additional Goals: 1-Demonstrate ADL Tasks, 2-Verbalize Understanding, 3- ImproveStrength/Gareth 1=Demonstrate adherence to instructed precautions during ADL tasks. 2=Patient will verbalize/demonstrate understanding of assistive devices/modifications for ADL. 3=Patient will improve strength/tolerance for activity to enable patient to perform ADL's. OT Education/Plan Problem List/Assessment Assessment: Decreased Safety Aware, Impaired Self-Care Skills Discharge Recommendations Plan/Recommendations: Continue POC Treatment Plan/Plan of Care Patient would benefit from OT for education, treatment and training to promote independence in ADL's, mobility, safety and/or upper extremity function for ADL's. Plan of Care: ADL Retraining, Functional Mobility, Group Exercise/Act as Ind, UE Funct Exercise/Act Treatment Duration: Mar 05, 2020 Frequency: At least 5 of 7 days/Wk (IRF) Estimated Hrs Per Day: 1.5 hours per day Agreement: Yes Rehab Potential: Fair Time/GCodes Start Time: 09:25 Stop Time: 10:25 Total Time Billed (hr/min): 60 Billed Treatment Time 1 visit-ADL 4 (60 min) MATILDA SUAZO Feb 21, 2020 10:40
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
[2020-02-21] MEDS ORDERED: TRM50T PO (12:33)
[2020-02-21] MEDS ORDERED: OXYC1TAB87 PO (12:33)
[2020-02-21] MEDS ORDERED: PANT40TA3 PO (12:33)
[2020-02-21] MEDS ORDERED: MELO7.5T46 PO (12:33)
--- NOTE | 2020-02-21 13:40 | Physical Therapy Daily Note ---
PT Daily Note-Current Subjective Pt is finishing with OT on arrival. No pain complaints during treatment. Mental Status Patient Orientation: Person, Place, Time, Situation Transfers SCALE: Activities may be completed with or without assistive devices. 2-Qgtpcpuvbe-oarhmmd completes the activity by him/herself with no assistance from a helper. 5-Set-up or Clean-up Assistance-helper sets up or cleans up; patient completes activity. [place] assists only prior to or following the activity. 4-Supervision or Touching Assistance-helper provides verbal cues and/or touching/steadying and/or contact guard assistance as patient completes activity. Assistance may be provided throughout the activity or intermittently. 3-Partial/Moderate Assistance-helper does LESS THAN HALF the effort. [place] lifts, holds or supports trunk or limbs, but provides less than half the effort. 2-Substantial/Maximal Assistance-helper does MORE THAN HALF the effort. [place] lifts or holds trunk or limbs and provides more than half the effort. 9-Dcioejmda-sicwkl does ALL the effort. Patient does none of the effort to complete the activity. Or, the assistance of 2 or more helpers is required for the patient to complete the activity. If activity was not attempted, code reason: 7-Patient Refused. 9-Not Applicable-not attempted and the patient did not perform the activity before the current illness, exacerbation or injury. 10-Not Attempted due to Environmental Limitations-(lack of equipment, weather restraints, etc.). 88-Not Attempted due to Medical Conditions or Safety Concerns. Sit to Stand (QC): 6 Chair/Oie-ud-Bcjga Xfer(QC): 6 Weight Bearing Right Lower Extremity: Right Full Weight Bearing Left Lower Extremity: Left Full Weight Bearing Gait Training Does the Patient Walk?: Yes Distance: 1000ft x2 Walk 10 feet (QC): 6 Walk 50 ft with 2 Turns(QC): 6 Walk 150 ft (QC): 6 Walking 10ft/uneven surface-QC: 6 Gait Persons Needed: 1 Gait Assistive Device: FWW Pt able to walk outside to the courtyard and walk over the wooden area, ramp, a nd ascend/descend the 3 steps with the walker. Stair Training Stair Training: Handrails/: uses walker #of Steps: 3 1 Step (curb) (QC): 5 Stairs: Pattern: Step to Assessment Pt is safe with steps and managing doors, thresholds, and the wooden decking. PT Short Term Goals Short Term Goals Time Frame: Feb 20, 2020 Roll Left & Right: 6 Sit to lyin Lying to sitting on side of be: 4 Sit to stand: 4 Chair/zlb-ho-nxjdg transfer: 4 Walk 10 feet: 4 Walk 50 feet with two turns: 4 Walk 150 feet: 4 PT Fdc Goals Fdc Goals PT Digital Developer Goals Time Frame: Mar 05, 2020 Roll Left & Right (QC): 6 Sit to Lying (QC): 6 Lying-Sitting on Side/Bed(QC): 6 Sit to Stand (QC): 6 Chair/Zjx-qb-Bgbys Xfer(QC): 6 Toilet Transfer (QC): 6 Car Transfer (QC): 6 Does the Patient Walk: Yes Walk 10 feet (QC): 6 Walk 50ft with 2 Turns (QC): 6 Walk 150 ft (QC): 6 Walking 10ft on Uneven Surface: 6 1 Step (curb) (QC): 4 4 Steps (QC): 4 12 Steps (QC): 4 Picking up an Object (QC): 88 Does the Pt use WC or Scooter?: No Wheel 50 feet with 2 turns (QC: 9 Type: N/A Wheel 150 feet: 9 Type: N/A PT Plan Treatment/Plan Treatment Plan: Continue Plan of Care Treatment Plan: Bed Mobility, Education, Functional Activity Gareth, Functional Strength, Group Therapy, Gait, Safety, Therapeutic Exercise, Transfers Treatment Duration: Mar 05, 2020 Frequency: At least 5 of 7 days/Wk (IRF) Estimated Hrs Per Day: 1.5 hours per day Patient and/or Family Agrees t: Yes Time/GCodes Time In: 1255 Time Out: 1325 Total Billed Treatment Time: 30 Total Billed Treatment 1, gt x2 (30) EMMA GARVIN PT Feb 21, 2020 13:40
--- NOTE | 2020-02-21 13:43 | NUR ---
"RD ASSESSMENT PMHx: s/p hip replacement; hypercholesterolemia; HTN; BPH PT INTERACTION: Pt was awake and pleasant during nutrition follow-up. Pt states he has been eating well since last assessment. Note avg PO intake 100% x4d, per chart review. Pt states no issues with n/v/c/d since last assessment. Note last BM was 02/19, and pt currently on bowel regimen of Colace BID; Senna BID; and Miralax BID, per chart review. ABNORMAL NUTRITION-RELATED LAB VALUES LOW: HIGH: BUN 20; AST 62; ALT 138; alkphos 174 Est. kcal needs: 8549-0869 kcal | 15-20 kcal/kg Est. Pro needs: 86-107 g Pro | 0.8-1.0 g Pro/kg PES STATEMENT: Given current PO intake, no nutrition diagnosis at this time (NO-1.1) INTERVENTION: Continue with current diet order of Regular diet. Will continue to follow and reassess as pt needs, intake, and status change. MONITOR/EVALUATE: PO Intake; Plan of Care; Hydration Status; Weight Status; Lab Values Janae Marin, MS, RD, LD"
--- NOTE | 2020-02-21 13:44 | NUR ---
CM/SS WEEKLY TEAM CONFERENCE and DISCHARGE PLANNING Reviewed Summary with patient, he is in agreement with physician and team for discharge tomorrow, 02/22/20. Patient will be going home with his parents for two weeks before returning home alone. IMM2 presented, documentation completed, charted. THERAPY: Attempting to schedule OP PT with [facility]. Switchboard staff indicate therapists have gone home early today so no one available to accept referral. Will followup in a.m. Patient is appropriate for OP program and investigative writer confirmed with his mother Jaymie they would be happy to take him for sessions. DME: FWW ordered today through [facility], agency agreed to deliver walker today in preparation for discharge tomorrow. Parents will pick patient up at 1100, investigative writer will coordinate with assigned unit RN to contact them about instructions for entrance.
--- NOTE | 2020-02-21 14:00 | NUR ---
MEDICATED WITH PERCOCET, DR CHANGED ORDER FROM 2 TABS TO 1.
--- NOTE | 2020-02-21 14:15 | Occupational Ther Daily Note ---
OT Current Status-Daily Note Subjective Pt alert, sitting in recliner. Pt agrees to therapy. No c/o pain. Mental Status/Objective Patient Orientation: Person, Place, Time, Situation ADL-Treatment Therapy Code Descriptions/Definitions Functional [place] Measure: 0=Not Assessed/NA 4=Minimal Assistance 1=Total Assistance 5=Supervision or Setup 2=Maximal Assistance 6=Modified [place] 3=Moderate Assistance 7=Complete IndependenceSCALE: Activities may be completed with or without assistive devices. 4-Bvzujkvscm-icpknld completes the activity by him/herself with no assistance f rom a helper. 5-Set-up or Clean-up Assistance-helper sets up or cleans up; patient completes activity. [place] assists only prior to or following the activity. 4-Supervision or Touching Assistance-helper provides verbal cues and/or touching/steadying and/or contact guard assistance as patient completes activity. Assistance may be provided throughout the activity or intermittently. 3-Partial/Moderate Assistance-helper does LESS THAN HALF the effort. [place] lifts, holds or supports trunk or limbs, but provides less than half the effort. 2-Substantial/Maximal Assistance-helper does MORE THAN HALF the effort. [place] lifts or holds trunk or limbs and provides more than half the effort. 4-Dkgdilbbp-wrmxgb does ALL the effort. Patient does none of the effort to complete the activity. Or, the assistance of 2 or more helpers is required for the patient to complete the activity. If activity was not attempted, code reason: 7-Patient Refused. 9-Not Applicable-not attempted and the patient did not perform the activity before the current illness, exacerbation or injury. 10-Not Attempted due to Environmental Limitations-(lack of equipment, weather restraints, etc.). 88-Not Attempted due to Medical Conditions or Safety Concerns. Toileting Hygiene (QC): 6 (Pt able to complete hygiene and clothing manipulation.) Toilet Transfer (QC): 6 (Using FWW, pt completed transfer by self.) Other Treatment Pt ambulated to therapy gym to complete UE strengthening exercises to increase overall strength for daily functional tasks. Arm bike at 30 velazquez resistance for 10 min, no breaks. PT took over care in pt's room. All needs met in room. OT Cutter Aluminum Sheet Goals Cutter Aluminum Sheet Goals Time Frame: Mar 05, 2020 Eating (QC): 6 (met) Oral Hygiene (QC): 6 (met) Toileting Hygiene (QC): 6 (met) Shower/Bathe Self (QC): 6 (met) Upper Body Dressing (QC): 6 (met) Lower Body Dressing (QC): 6 (met) On/Off Footwear (QC): 6 (met) Additional Goals: 1-Demonstrate ADL Tasks, 2-Verbalize Understanding, 3-ImproveStrength/Gareth 1=Demonstrate adherence to instructed precautions during ADL tasks. 2=Patient will verbalize/demonstrate understanding of assistive devices/modifications for ADL. 3=Patient will improve strength/tolerance for activity to enable patient to perform ADL's. OT Education/Plan Problem List/Assessment Assessment: Decreased UE Strength Discharge Recommendations Plan/Recommendations: Continue POC Treatment Plan/Plan of Care Patient would benefit from OT for education, treatment and training to promote independence in ADL's, mobility, safety and/or upper extremity function for ADL's. Plan of Care: ADL Retraining, Functional Mobility, Group Exercise/Act as Ind, UE Funct Exercise/Act Treatment Duration: Mar 05, 2020 Frequency: At least 5 of 7 days/Wk (IRF) Estimated Hrs Per Day: 1.5 hours per day Agreement: Yes Rehab Potential: Fair Time/GCodes Start Time: 12:40 Stop Time: 12:55 Total Time Billed (hr/min): 15 Billed Treatment Time 1 visit-EX 1 (15 min) MATILDA SUAZO Feb 21, 2020 14:15
--- NOTE | 2020-02-21 14:18 | Speech Therapy Daily Note ---
Speech Daily Progress Note Subjective Date Seen by Provider: Feb 21, 2020 Time Seen by Provider: 00:30 Patient is happy about going home tomorrow. He states he will be glad to be able to play with his grandchildren. Objective Patient completed a series of q/a related to his returning home safely with 100% given no cues. Assessment Assessment Current Status: Good Progress Treatment Plan Discontinue ST, Goals Met Speech Short Term Goals Short Term Goals Short Term Goals 1) Patient will complete memory tasks related to his daily needs with 90% or greater given minimal cuing. 2) Patient will complete safety awareness tasks related to his daily needs with 90% or greater given minimal cuing. 3) Patient will complete problem solving tasks related to his daily needs with 90% or greater given minimal cuing. Speech Mcfp Goals Office Administration Goals Patient will improve cognitive-communication necessary for safety and daily jaylen ing tasks with minimal assist. Speech-Plan Patient/Family Goals Patient/Family Goals: Patient is discharging to his parents home tomorrow. Treatment Plan Speech Therapy Treatment Plan: Discontinue ST, Goals Met Treatment Duration: Feb 29, 2020 Frequency: 5 times per week Estimated Hrs Per Day: .5 hour per day Rehab Potential: Fair Barriers to Learning: Patient's medical history Pt/Family Agrees to Plan: Yes Safety Risks/Education Teaching Recipient: Patient Teaching Methods: Demonstration, Discussion Response to Teaching: Verbalize Understanding, Return Demonstration Education Topics Provided: Continued safety upon his return home Time Speech Therapy Time In: 13:30 Speech Therapy Time Out: 14:00 Total Billed Time: 30 Billed Treatment Time 1, MARGARET Hinds Feb 21, 2020 14:18
[2020-02-21 17:02] VITALS: BP 111/71
--- NOTE | 2020-02-21 18:15 | NUR ---
PT HAS BEEN SEEN GOING TO BATHROOM SEVERAL TIMES ON HIS OWN W/OUT USING CALL LIGHT. NOW UTILIZING BED AND CHAIR EXIT ALARMS.
[2020-02-21] MEDS: FENOFIBRATE 134 MG (LOFIBRA) CAPSULE PO SCH (21:07)
[2020-02-22] MEDS: oxyCODONE/APAP 5/325MG (PERCOCET 5) TABLET PO PRN ×3 (01:47→10:26)
[2020-02-22 05:26] VITALS: BP 128/83
[2020-02-22] MEDS: polyethylene glycoL POWDER 17 GM (MIRALAX) PACK PO SCH (08:06)
[2020-02-22] MEDS: DOCUSATE SODIUM 100 MG (COLACE) CAP PO SCH (08:06)
[2020-02-22] MEDS: SENNA W/DOCUSATE (SENOKOT S) TABLET PO SCH (08:07)
[2020-02-22] MEDS: PANTOPRAZOLE 40 MG (PROTONIX) TAB PO SCH (08:26)
[2020-02-22] MEDS: DULoxetine 30 MG (CYMBALTA) CAP PO SCH (08:26)
[2020-02-22] MEDS: ASPIRIN E.C. 81 MG (ECOTRIN) TAB PO SCH (08:26)
[2020-02-22] MEDS: GABAPENTIN 600 MG (NEURONTIN) TAB PO SCH (08:26)
[2020-02-22] MEDS: CARVEDILOL 12.5 MG (COREG) TABLET PO SCH (08:26)
[2020-02-22] MEDS: MELOXICAM 7.5 MG (MOBIC) TABLET PO SCH (08:27)
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
--- NOTE | 2020-02-22 10:04 | Therapy Team Discharge Summary ---
Therapy Discharge Summary Discharge Recommendations Date of Discharge Occupational Therapy Decreased UE Strength Speech-Language Pathology Patient was admitted to the ARU s/p hip surgery. He scored in the mild range on the SLUMS and received skilled ST. He met his cognitive goals for safety aw areness and independence. He is discharging home this date with all ST goals met. PT Correction Goals Transition Nurse Goals PT Correction Goals Time Frame: Mar 05, 2020 Roll Left to Right (QC): 6 Sit to Lying (QC): 6 Lying-Sitting on Side/Bed(QC): 6 Sit to Stand (QC): 6 Chair/Wrr-gn-Rcpfa Xfer(QC): 6 Car Transfer (QC): 6 Does the Patient Walk: Yes Walk 10 feet (QC): 6 Walk 10ft-Uneven Surface(QC): 6 Walk 50ft with 2 Turns (QC): 6 Walk 150 ft (QC): 6 Does the Pt use WC or Scooter?: No Wheel 50 feet with 2 turns (QC: 9 1 Step (curb) (QC): 4 4 Steps (QC): 4 12 Steps (QC): 4 Picking up an Object (QC): 88 OT Transition Nurse Goals Transition Nurse Goals Time Frame: Mar 05, 2020 Eating (QC): 6 (met) Oral Hygiene (QC): 6 (met) Shower/Bathe Self (QC): 6 (met) Upper Body Dressing (QC): 6 (met) Lower Body Dressing (QC): 6 (met) On/Off Footwear (QC): 6 (met) Toileting Hygiene (QC): 6 (met) Toilet/Commode Transfer (QC): 6 Additional Goals: 1-Demonstrate ADL Tasks, 2-Verbalize Understanding, 3- ImproveStrength/Gareth 1=Demonstrate adherence to instructed precautions during ADL tasks. 2=Patient will verbalize/demonstrate understanding of assistive devices/modifications for ADL. 3=Patient will improve strength/tolerance for activity to enable patient to perform ADL's. Speech Correction Goals Correction Goals Patient will improve cognitive-communication necessary for safety and daily living tasks with minimal assist. MARGARET PENA Feb 22, 2020 10:04
--- NOTE | 2020-02-22 10:27 | NUR ---
CM/SS DISCHARGE Patient discharged home with his parents as planned. Unit RN to coordinate with patient's mother regarding worm picker arrangements and location, scheduled for 1100. THERAPY: Outpatient therapy coordinated with [facility], first appointment 02/25/20 at 1000. Recorded in patient discharge instructions and updated patient. DME: FWW delivered from [facility]. Animal Pathologist contacted Dr. Jon office for followup appointment, scheduled 02/29/20 at 0915, updated Unit RN. Patient is dressed and ready to leave. Very appreciative of his care here stating this is the best hospital he has been in.
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
== END 2020-02-22 10:20 | disposition home or self-care (01) | DRG 560 ==
PROVIDERS: ADMIT Internal Medicine; ATTEND Internal Medicine
DX: Z47.1 Aftercare following joint replacement surgery (principal); Z96.641 Presence of right artificial hip joint; I69.351 Hemiplegia and hemiparesis following cerebral infarction affecting right dominant side; S01.90XS Unspecified open wound of unspecified part of head, sequela; R29.6 Repeated falls; I69.323 Fluency disorder following cerebral infarction; I69.319 Unspecified symptoms and signs involving cognitive functions following cerebral infarction; F11.20 Opioid dependence, uncomplicated; M54.9 Dorsalgia, unspecified; E78.5 Hyperlipidemia, unspecified; I10 Essential (primary) hypertension; N40.0 Benign prostatic hyperplasia without lower urinary tract symptoms; K59.00 Constipation, unspecified; Z87.891 Personal history of nicotine dependence
CPT/HCPCS: 36415; 80053; 85025; 86803